=== PATIENT | male | born 1950 | race Caucasian/White ===

== ENCOUNTER 2017-03-18 12:46 | Emergency (ER) | payer MEDICARE, OTHER ==
[~2017-03-18] VITALS: Ht 172.7 cm; Wt 77.1 kg
[~2017-03-18 12:46] MED LIST: AMOX500 PO; ASPI81EC PO; CLON1; CLON1 PO; DIAZ2 PO; DOXY100; DULO30 PO; ESOM20; ESOM20 PO; HYDACE5; HYDACE5 PO; HYDACE5325 PO; LORA2 PO; META800 PO; METO25ER PO; NAPR550 PO; NEOPOLHYDS OT; OXYACE5T PO; OXYC10ER PO; OXYC40ER PO; PROACE100; TIZA4; VENL75ER
[2017-03-18 13:20] LABS: BASOPHILS ABSOLUTE AUTO 0.02 K/mm3 (0.00-0.23); BASOPHILS PERCENT AUTO 0 % (0-2); EOSINOPHILS PERCENT AUTO 3 % (0-6); Hematocrit 47.4 % (37.0-53.0); Hemoglobin 15.2 g/dL (13.5-17.5); IMMATURE GRAN ABSOLUTE AUTO 0.02 K/mm3 (0.00-0.10); IMMATURE GRAN PERCENT AUTO 0 % (0-1); LYMPHOCYTES ABSOLUTE AUTO 2.26 K/mm3 (0.84-5.20); LYMPHOCYTES PERCENT AUTO 32 % (21-46); MONOCYTES ABSOLUTE AUTO 0.49 K/mm3 (0.16-1.47); MONOCYTES PERCENT AUTO 7 % (4-13); Mean Corpuscular HGB 28.8 pg (26.0-34.0); Mean Corpuscular HGB Conc 32.1 g/dL (31.5-36.5); Mean Corpuscular Volume 90 fL (80-100); Mean Platelet Volume 8.9 fL (9.1-12.4); NEUTROPHILS ABSOLUTE AUTO 4.11 K/mm3 (1.96-9.15); NEUTROPHILS PERCENT AUTO 58 % (41-73); Platelet Count 201 K/mm3 (150-400); RDW Coefficient Variation 13.8 % (11.7-14.2); RDW Standard Deviation 45.4 fL (35.1-46.3); Red Blood Cell Count 5.28 M/mm3 (4.30-5.90)
[2017-03-18 13:43] LABS: Alanine Aminotransfer (ALT/SGP 24 U/L (12-78); Albumin, Blood 3.6 g/dL (3.4-5.0); Albumin/Globulin Ratio 0.9 (0.8-1.8); Alk Phos 84 U/L (50-136); Anion Gap 5 mmol/L (6-16); Aspartate Aminotrans (AST/SGOT 19 U/L (12-37); Bilirubin, Total 0.5 mg/dL (0.1-1.0); Blood Urea Nitrogen 16 mg/dL (8-24); Bun/Creatinine Ratio 15.7 (12.0-20.0); CO2, Blood 31 mmol/L (21-32); Calcium, Blood 8.5 mg/dL (8.5-10.1); Chloride, Blood 104 mmol/L (98-108); Creatinine, Blood 1.02 mg/dL (0.60-1.20); Globulin, Blood 3.9 g/dL (2.2-4.0); Glomerular Filtration Rate >60 (60-); Glucose, Blood 99 mg/dL (70-99); Potassium, Blood 4.1 mmol/L (3.5-5.5); Sodium, Blood 140 mmol/L (136-145); Total Protein, Blood 7.5 g/dL (6.4-8.2); Troponin I <0.015 ng/mL (0.000-0.040)
== END 2017-03-18 16:34 | disposition home or self-care (01) ==
LOC: ER 12:46
PROVIDERS: Emergency Medicine
DX: R07.89 Other chest pain (principal); F03.90 Unspecified dementia, unspecified severity, without behavioral disturbance, psychotic disturbance, mood disturbance, and anxiety; Z79.82 Long term (current) use of aspirin; Z79.899 Other long term (current) drug therapy; Z87.891 Personal history of nicotine dependence
CPT/HCPCS: 36415; 71046; 80053; 84484; 85025; 93005; 93010; 99284

== ENCOUNTER 2018-11-06 07:42 | Inpatient (IN) | payer MEDICARE, OTHER ==
[~2018-11-06] VITALS: Ht 172.7 cm; Wt 80.0 kg
[2018-11-06 09:03] LABS: BASOPHILS ABSOLUTE AUTO 0.05 K/mm3 (0.00-0.23); BASOPHILS PERCENT AUTO 0 % (0-2); EOSINOPHILS ABSOLUTE AUTO 0.03 K/mm3 (0.00-0.68); EOSINOPHILS PERCENT AUTO 0 % (0-6); Hemoglobin 18.4 g/dL (13.5-17.5); IMMATURE GRAN ABSOLUTE AUTO 0.17 K/mm3 (0.00-0.10); IMMATURE GRAN PERCENT AUTO 1 % (0-1); LYMPHOCYTES ABSOLUTE AUTO 1.93 K/mm3 (0.84-5.20); LYMPHOCYTES PERCENT AUTO 12 % (21-46); MONOCYTES ABSOLUTE AUTO 0.94 K/mm3 (0.16-1.47); MONOCYTES PERCENT AUTO 6 % (4-13); Mean Corpuscular HGB 29.2 pg (26.0-34.0); Mean Corpuscular HGB Conc 32.6 g/dL (31.5-36.5); Mean Corpuscular Volume 89 fL (80-100); Mean Platelet Volume 8.5 fL (9.1-12.4); NEUTROPHILS ABSOLUTE AUTO 12.87 K/mm3 (1.96-9.15); NEUTROPHILS PERCENT AUTO 80 % (41-73); Platelet Count 294 K/mm3 (150-400); RDW Coefficient Variation 15.9 % (11.7-14.2); RDW Standard Deviation 50.1 fL (35.1-46.3); Red Blood Cell Count 6.31 M/mm3 (4.30-5.90); White Blood Cell Count 15.99 K/mm3 (4.00-11.30)
[2018-11-06 09:06] LABS: Hematocrit 56.4 % (37.0-53.0)
[2018-11-06 09:18] LABS: Alanine Aminotransfer (ALT/SGP 45 U/L (12-78); Albumin, Blood 3.6 g/dL (3.4-5.0); Albumin/Globulin Ratio 0.9 (0.8-1.8); Alk Phos 77 U/L (50-136); Anion Gap 6 mmol/L (6-16); Aspartate Aminotrans (AST/SGOT 33 U/L (12-37); Bilirubin, Total 0.7 mg/dL (0.1-1.0); Blood Urea Nitrogen 9 mg/dL (8-24); Bun/Creatinine Ratio 9.3 (12.0-20.0); CO2, Blood 30 mmol/L (21-32); Calcium, Blood 8.5 mg/dL (8.5-10.1); Chloride, Blood 101 mmol/L (98-108); Creatinine, Blood 0.97 mg/dL (0.60-1.20); Globulin, Blood 4.1 g/dL (2.2-4.0); Glomerular Filtration Rate >60 (60-); Glucose, Blood 198 mg/dL (70-99); Potassium, Blood 3.5 mmol/L (3.5-5.5); Sodium, Blood 137 mmol/L (136-145); Total Protein, Blood 7.7 g/dL (6.4-8.2)
[2018-11-06] MEDS ORDERED: Primidone50 MG PO (10:24)
[2018-11-06] MEDS ORDERED: Robaxin750 MG PO (10:24)
[2018-11-06] MEDS ORDERED: TRAZ50 PO ×2 (10:24→15:31)
[2018-11-06] MEDS ORDERED: Depo-Testos200 MG/ML IM (10:24)
[2018-11-06] MEDS ORDERED: Prozac40 MG PO (10:24)
[2018-11-06] MEDS ORDERED: MORPHINE 1100 MG/101 (11:49)
[2018-11-06 11:53] LABS: International Normalized Ratio 1.05; Prothrombin Time Results 11.1 Sec (9.7-11.5)
[2018-11-06 15:23] LABS: Bilirubin, Urine Neg (Neg); Blood, Urine 1+ (Neg); Glucose Qualitative, Urine 2+ (Neg); Ketones, Urine 3+ (Neg); Leukocyte Esterase, Urine Neg (Neg); Nitrite, Urine Neg (Neg); Protein, Urine Neg (Neg); Urobilinogen, Urine NORM (Normal)
[2018-11-06] MEDS ORDERED: Vitamin D2000 UNIT PO (15:34)
[2018-11-06 15:35] LABS: Color, Urine Yellow (P-Yellow)
[2018-11-06 15:36] LABS: Appearance, Urine Clear (Clear)
[2018-11-06 15:37] LABS: Bacteria Rare /hpf; Red Blood Cells, Urine 0-2 /hpf (0-2); Squamous Epithelial Cells Rare /hpf (Few); White Blood Cells, Urine 0-2 /hpf (0-5)
--- NOTE | 2018-11-06 19:47 | NUR ---
1229 PT ADMITTED TO MEDICAL FLOOR VIA GURNEY, SELF TRANSFERED TO BED WITHOUT ISSUE, ALTHOUGH PAINFUL. PT WITH ABD PAIN, NO NAUSEA, GAURDED, PAINFUL WITH MINIMAL PALPATATION. MEDICATED PER EMAR FOR PAIN WITH SOME RELIEF. IV BOLUS COMPLETED, STARTED ON MAINTENCE FLUIDS. PT IS FLUSHED, DIAPHORETIC, TACHYCARDIC, BP STABLE. 1700 UNABLE TO MANAGE PAIN WITH CURRENT ORDERS ABD PAIN HAS INCREASED. DR. HODGES NOTIFIED, RECIEVED ORDERS FOR SURGICAL CONSULT AND DR. HODGES INCREASED THE DOSING OF PAIN MEDICATIONS. DR. KU THEN ORDERED STAT CT ABD WITH CONTRAST, WHEN PT RETURNED PAIN STILL 10/10, PT GAURDED MOANING AND WITH SHALLOW BREATHING DEEP INSPIRATION INCREASED PAIN. 1845 DR. KU AT BEDSIDE, HE REPORTS TO PT AND OF CT FINDINGS AND REVIEWS OPTIONS OF TREATMENT. PT AND WISH TO AVOID SURGICAL INTERVENTION FOR THE TIME BEING AND SEE IF THE PT IMPROVES WITH FLUIDS AND IV ANTIBIOTICS, RISKS AND BENIFITS REVIEWED WITH PT AND . DR. KU GAVE ORDER TO TRANSFER PT TO PCU AND REQUEST THAT HOSPITALIST PLACE ORDERS FOR RISK CONTROL PRODUCT LIABILITY DIRECTOR PUMP PAIN MANAGEMENT. DR. SANTIAGO NOTIFIED, HE REPORTED THAT HE WOULD PUT IN THE ORDERS.
--- NOTE | 2018-11-06 20:14 | NUR ---
PT TRANSFERRED TO PCU 13. REPORT CALLED TO MARIO WALTERS. PT BELONGINGS TRANSFERRED WITH PT, AT BEDSIDE.
--- NOTE | 2018-11-06 20:30 | NUR ---
PT BROUGHT TO PCU RM 13 @ APPROX 2000 W/ AT BEDSIDE. PT A&O X4. PT C/O 12/21 "GAS-LIKE" "STABBING" ABDOMINAL PAIN SPREAD ACROSS LOWER ABD. PT STATES INABILITY TO TAKE DEEP BREATHES D/T INCREASED PAIN. PT TO BE SET UP W/ BANK COURIER FOR PAIN. PT NPO W/ ANTICIPATION OF POSSIBLE SURGERY. BP ELEVATED, RR 20-30. MONITOR SHOWS ST, HR 120-135. SURGICALLY INSERTED PAIN PUMP NOTED TO BE PRESENT IN LLQ. STATES PT LAST USED PAIN PUMP "YESTERDAY MORNING." DISCUSSED USE W/ PT SPOUSE. IV ABX AND FLUIDS INFUSING PER ORDERS. WILL CONTINUE TO MONITOR AND PROVIDE CARE.
--- NOTE | 2018-11-07 00:04 | NUR ---
UPDATE PT REPORTS DECREASE IN PAIN FROM 12/21 TO 09/20 W/ PAIN PUMP BEING USED BY PT. BP CONTINUES TO BE ELEVATED, AND MONITOR CONTINUES TO SHOWS ST, HR 120-130, RR 20-30. CALL TO MD LU TO REPORT CONTINUED BP ELEVATION AND HR. NO NEW ORDERS AT THIS TIME. WILL CONTINUE TO MONITOR AND PROVIDE CARE.
--- NOTE | 2018-11-07 01:39 | NUR ---
PT C/O INCREASING LOWER ABD PAIN RETURNING TO 9/10. PT FOUND TO NO LONGER HAVE TOOL OR DIE DRAWING CHECKER PUMP REMOTE WITHIN REACH AND NOT HAVING USED IT RECENTLY. REMOTE RETURNED TO PT W/ ENCOURAGEMENT TO USE TOOL OR DIE DRAWING CHECKER PUMP NEEDED TO BETTER MANAGE PAIN. WILL CONTINUE TO MONITOR AND PROVIDE CARE.
[2018-11-07 04:12] LABS: BASOPHILS ABSOLUTE AUTO 0.07 K/mm3 (0.00-0.23); BASOPHILS PERCENT AUTO 1 % (0-2); EOSINOPHILS PERCENT AUTO 0 % (0-6); Hematocrit 58.6 % (37.0-53.0); Hemoglobin 19.2 g/dL (13.5-17.5); IMMATURE GRAN ABSOLUTE AUTO 0.07 K/mm3 (0.00-0.10); IMMATURE GRAN PERCENT AUTO 1 % (0-1); LYMPHOCYTES ABSOLUTE AUTO 0.42 K/mm3 (0.84-5.20); LYMPHOCYTES PERCENT AUTO 4 % (21-46); MONOCYTES ABSOLUTE AUTO 0.31 K/mm3 (0.16-1.47); MONOCYTES PERCENT AUTO 3 % (4-13); Mean Corpuscular HGB 29.2 pg (26.0-34.0); Mean Corpuscular HGB Conc 32.8 g/dL (31.5-36.5); Mean Corpuscular Volume 89 fL (80-100); Mean Platelet Volume 8.8 fL (9.1-12.4); NEUTROPHILS ABSOLUTE AUTO 8.86 K/mm3 (1.96-9.15); NEUTROPHILS PERCENT AUTO 91 % (41-73); Platelet Count 251 K/mm3 (150-400); RDW Coefficient Variation 16.4 % (11.7-14.2); RDW Standard Deviation 50.6 fL (35.1-46.3); Red Blood Cell Count 6.57 M/mm3 (4.30-5.90); White Blood Cell Count 9.73 K/mm3 (4.00-11.30)
[2018-11-07 04:23] LABS: Alanine Aminotransfer (ALT/SGP 39 U/L (12-78); Albumin, Blood 2.7 g/dL (3.4-5.0); Albumin/Globulin Ratio 0.7 (0.8-1.8); Alk Phos 48 U/L (50-136); Anion Gap 7 mmol/L (6-16); Aspartate Aminotrans (AST/SGOT 35 U/L (12-37); Bilirubin, Total 1.3 mg/dL (0.1-1.0); Blood Urea Nitrogen 12 mg/dL (8-24); Bun/Creatinine Ratio 13.9 (12.0-20.0); CO2, Blood 24 mmol/L (21-32); Calcium, Blood 8.3 mg/dL (8.5-10.1); Chloride, Blood 104 mmol/L (98-108); Creatinine, Blood 0.87 mg/dL (0.60-1.20); Globulin, Blood 3.8 g/dL (2.2-4.0); Glomerular Filtration Rate >60 (60-); Glucose, Blood 118 mg/dL (70-99); Potassium, Blood 4.4 mmol/L (3.5-5.5); Sodium, Blood 135 mmol/L (136-145); Total Protein, Blood 6.5 g/dL (6.4-8.2)
[2018-11-07 04:37] LABS: BAND PERCENT MAN 53 % (0-8); BASOPHILS PERCENT MAN 0 % (0-2); EOSINOPHILS PERCENT MAN 0 % (0-6); LYMPHOCYTES ABSOLUTE MAN 0.38 K/mm3 (0.84-5.20); LYMPHOCYTES PERCENT MAN 4 % (21-46); METAMYELOCYTE ABSOLUTE MAN 1.94 K/mm3 (0.00-0.00); METAMYELOCYTE PERCENT MAN 20 % (0-0); MONOCYTES ABSOLUTE MAN 0.09 K/mm3 (0.16-1.47); MONOCYTES PERCENT MAN 1 % (4-13); NEUTROPHILS ABSOLUTE MAN 7.29 K/mm3 (1.96-9.15); SEG NEUTROPHILS PERCENT MAN 22 % (41-73); TOTAL CELLS COUNTED 100
--- NOTE | 2018-11-07 05:57 | NUR ---
SHIFT SUMMARY PT A&O X4. PT CONTINUES TO C/O "STABBING" LOWER ABD PAIN THAT IS WORSENED W/ ATTEMPT TO DEEP BREATHE. PT BEING ENCOURAGED TO STAY ON TOP OF PAIN W/ FIELD REPRESENTATIVE PUMP, PT REQUIRING REMINDING TO USE. BP, HR, AND RR CONTINUE TO BE ELEVATED. CALL TO MD LU THIS SHIFT FOR BP AND HR W/ INSTRUCTIONS TO CONTINUE MONITORING W/ NO NEW ORDERS. PT CONTINUES TO BE NPO FOR POTENTIAL SURGERY. SPO2 > 92% W/ 2L NC. PT VOIDING IN URINAL W/ URINE NOTED TO OCCASSIONALLY BE BLOOD TINGED AND HAVE MUCUS LIKE STRANDS IN URINE. UA PREVIOUSLY DONE. PT IN BED W/ SPOUSE AT BEDSIDE T/O SHIFT. IV FLUIDS AND ABX INFUSING PER ORDERS. WILL CONTINUE TO MONITOR AND PROVIDE CARE UNTIL REPORT OFF TO DAY SHIFT RN.
--- NOTE | 2018-11-07 09:04 | NUR ---
Bedside report was received from Lisa Mohan RN. The pt is awake, appears uncomfortable, and is talking with us. States his pain is 8/10, and is pushing the [employer] pump delivery button every 10 minutes as his is setting a timer on her iPad to alert him to when his pain medication is available. However, this led to the pt reaching the 4 hour maximum dose limit quite soon and a lockout time of 1 hour [address] Ackerman was called at 0750 (just after he had rounded on the patient) and 4 hour max dose was increased. I spoke with his who was concerned that the pt's pain would spiral out of control which she stated had happened last night, which is why she was setting the timer on her iPad. I explained that it would be better to allow the patient's pain , not the timer or a clock, to determine when it would be the time for him to push the delivery button on the [employer]. She seemed anxious by the suggestion, but I explained that it is a safety measure to prevent overdosing on the IV narcotic. She verbalized understanding.
--- NOTE | 2018-11-07 09:50 | NUR ---
History, Chart, Medications and Allergies reviewed before start of procedure.Lungs clear t/o but labor breathing due to abdominal pain. 02 2l/nc in place to keep sats >90% Patient confirms NPO status and agrees with scheduled surgery. Pre-Op teaching done. Pt verbalizes understanding.
--- NOTE | 2018-11-07 12:06 | NUR ---
11/07/18 1206 Jonas Berg 1155 RECEIVED REPORT FROM JENN SILVERIO
--- NOTE | 2018-11-07 14:15 | NUR ---
Patient arrived from surgery with anesthesia managing airway and handed off to RT and Dr Pearson. Patient hooked up to monitor and vent. He has 7.5 ET and 23cm at teeth with vent settings AC 16, TV 450, FiO2 100%, PEEP 5.0 and sats 100%. Shortly after reduced to FiO2 25% and sats 94%. Placed OG and Verified by xray, labs drawn.He has surgically implanted pain pump to left abdomen, wound Vac to midline abdomen and ostomy with pink stoma to left sidce of wound vac. He has JORI drain with seroussanguenous fluid in JORI bulb. He has 14 Eh. patten draining to gravity. He opens eyes with positioning.. Dr solorzano by to see patient.
[2018-11-07 14:45] LABS: Base Excess Venous 0.5 mmol/L; PCO2 Venous 47.3 mmHg (38-42); PO2 Venous 28.2 mmHg (38-42); pH Blood Venous 7.35 (7.34-7.37)
[2018-11-07 15:23] LABS: Mean Corpuscular HGB 29.4 pg (26.0-34.0); Mean Corpuscular HGB Conc 32.1 g/dL (31.5-36.5); Mean Platelet Volume 9.3 fL (9.1-12.4); Platelet Count 233 K/mm3 (150-400); RDW Coefficient Variation 15.9 % (11.7-14.2); RDW Standard Deviation 53.5 fL (35.1-46.3); Red Blood Cell Count 6.13 M/mm3 (4.30-5.90); White Blood Cell Count 6.95 K/mm3 (4.00-11.30)
[2018-11-07 15:24] LABS: Magnesium, Blood 1.4 mg/dL (1.6-2.4)
[2018-11-07 15:26] LABS: Hematocrit 56.1 % (37.0-53.0)
[2018-11-07 15:27] LABS: Alanine Aminotransfer (ALT/SGP 31 U/L (12-78); Albumin/Globulin Ratio 0.6 (0.8-1.8); Alk Phos 38 U/L (50-136); Anion Gap 6 mmol/L (6-16); Aspartate Aminotrans (AST/SGOT 35 U/L (12-37); Bilirubin, Total 1.1 mg/dL (0.1-1.0); Blood Urea Nitrogen 14 mg/dL (8-24); Bun/Creatinine Ratio 12.1 (12.0-20.0); CO2, Blood 27 mmol/L (21-32); Calcium, Blood 7.6 mg/dL (8.5-10.1); Chloride, Blood 103 mmol/L (98-108); Creatinine, Blood 1.16 mg/dL (0.60-1.20); Globulin, Blood 3.3 g/dL (2.2-4.0); Glomerular Filtration Rate >60 (60-); Glucose, Blood 118 mg/dL (70-99); Mean Corpuscular Volume 92 fL (80-100); Phosphorus, Blood 2.3 mg/dL (2.5-4.9); Potassium, Blood 4.4 mmol/L (3.5-5.5); Sodium, Blood 136 mmol/L (136-145); Total Protein, Blood 5.3 g/dL (6.4-8.2); Troponin I 0.024 ng/mL (0.000-0.040)
[2018-11-07 15:49] LABS: BAND PERCENT MAN 50 % (0-8); BASOPHILS PERCENT MAN 0 % (0-2); EOSINOPHILS ABSOLUTE MAN 0.06 K/mm3 (0.00-0.68); EOSINOPHILS PERCENT MAN 1 % (0-6); LYMPHOCYTES ABSOLUTE MAN 0.62 K/mm3 (0.84-5.20); LYMPHOCYTES PERCENT MAN 9 % (21-46); METAMYELOCYTE ABSOLUTE MAN 0.62 K/mm3 (0.00-0.00); METAMYELOCYTE PERCENT MAN 9 % (0-0); MONOCYTES ABSOLUTE MAN 0.06 K/mm3 (0.16-1.47); MONOCYTES PERCENT MAN 1 % (4-13); MYELOCYTE ABSOLUTE MAN 0.13 K/mm3 (0.00-0.00); MYELOCYTE PERCENT MAN 2 % (0-0); NEUTROPHILS ABSOLUTE MAN 5.42 K/mm3 (1.96-9.15); SEG NEUTROPHILS PERCENT MAN 28 % (41-73); TOTAL CELLS COUNTED 100
--- NOTE | 2018-11-07 15:50 | NUR ---
Patient by and at bedside, he is resting and no changes to vent settings from last note. Propofol increased to 45mcg/kg/min as he was a little restless. Systolic 118, MAP>65 and HR 114. Surgical site and wound vac sites C/D/I .
--- NOTE | 2018-11-07 17:02 | NUR ---
Did stat lactic acid and came back at 4.[address] Pearson and orders for one NS bolus 1L and then 150ml/hr. Placed cooling fan as temp increased to 99.3. VSS
--- NOTE | 2018-11-07 17:54 | NUR ---
Vent setting AC 16, TV 450, FiO2 25%, PEEP 5.0 at sats 92%. Ice packed armpits and placed ice in front of fan took blankets off and his temp finally dropped 98.9. Emptied 40 ml serous sanguenous from JORI, wound vac intact and working. Bolus done and NS at 150ml/hr started. remains at bedisde. Propofol continues at 45 mcg/kg/min.
--- NOTE | 2018-11-07 19:00 | NUR ---
ASSUMED CARE ASSUMED CARE OF PATIENT. REMAINS INTUBATED- AC 15, TV 450, PEEP 5, FIO2 30%. RR 15-16. SEDATED WITH PROPOFOL @ 45MCG/KG/MIN. RAISES EYESBROWS TO NOXIOUS STIMULI. FACIAL GRIMACING NOTED WITH STIMULI. MINIMAL GROSS MOTOR MOVEMENT NOTED IN EXTREMITIES. NOT FOLLOWING ANY COMMANDS. JACKLYN, 2MM, SLIGHTLY SLUGGISH. BILATERAL SOFT WRIST RESTRAINTS IN PLACE. OG CLAMPED AT THIS TIME. MIDLINE ABDOMINAL INCISION WITH WOUND VAC. LANCE DRAIN TO RIGHT ABDOMEN WITH SMALL AMOUNT OF SEROSANGUINOUS DRAINAGE. COLOSTOMY INTACT TO LEFT ABDOMEN- STOMA IS BEEFY RED. MCNEIL PATENT AND DRAINING SMALL AMOUNTS OF KANA URINE. PAS TO BLE. LR INFUSING @ 150CC/HR PER ORDER.
--- NOTE | 2018-11-07 20:00 | NUR ---
ELECTROLYTES RECEIVED CALL FROM DR. MORAES REGARDING LABS DRAWN AT 1430. WILL REPLACE PHOSPHOROUS AND MAGNESIUM PER ELECTROLYTE REPLACEMENT PROTOCOL. UPDATE GIVEN TO DR. MORAES, INCLUDING DECREASED URINE OUTPUT. PLAN IS TO TKO IV FLUIDS AT THIS TIME AND MONITOR URINE OUTPUT.
--- NOTE | 2018-11-07 23:02 | NUR ---
MD UPDATE DR. MORAES UPDATED ON URINARY OUTPUT AND BLOOD PRESSURE. IV FLUIDS DISCUSSED WITH AND DECISION MADE TO FINISH THE NS BAG THAT IS CURRENTLY HANGING AT 100CC/HR AND THEN TK0 IV FLUIDS.
[2018-11-08 03:27] LABS: Base Excess Venous -0.2 mmol/L; PCO2 Venous 52.3 mmHg (38-42); PO2 Venous 24.7 mmHg (38-42); pH Blood Venous 7.31 (7.34-7.37)
[2018-11-08 03:33] LABS: BASOPHILS ABSOLUTE AUTO 0.04 K/mm3 (0.00-0.23); BASOPHILS PERCENT AUTO 1 % (0-2); Hematocrit 47.3 % (37.0-53.0); LYMPHOCYTES ABSOLUTE AUTO 0.45 K/mm3 (0.84-5.20); LYMPHOCYTES PERCENT AUTO 6 % (21-46); MONOCYTES ABSOLUTE AUTO 0.27 K/mm3 (0.16-1.47); MONOCYTES PERCENT AUTO 3 % (4-13); Mean Corpuscular HGB 29.4 pg (26.0-34.0); Mean Corpuscular HGB Conc 31.7 g/dL (31.5-36.5); Mean Corpuscular Volume 93 fL (80-100); Mean Platelet Volume 8.9 fL (9.1-12.4); Platelet Count 187 K/mm3 (150-400); RDW Coefficient Variation 15.9 % (11.7-14.2); RDW Standard Deviation 54.2 fL (35.1-46.3); Red Blood Cell Count 5.11 M/mm3 (4.30-5.90); White Blood Cell Count 8.17 K/mm3 (4.00-11.30)
[2018-11-08 03:38] LABS: EOSINOPHILS PERCENT AUTO 0 % (0-6); IMMATURE GRAN ABSOLUTE AUTO 0.06 K/mm3 (0.00-0.10); IMMATURE GRAN PERCENT AUTO 1 % (0-1); NEUTROPHILS ABSOLUTE AUTO 7.35 K/mm3 (1.96-9.15); NEUTROPHILS PERCENT AUTO 90 % (41-73)
--- NOTE | 2018-11-08 03:50 | NUR ---
SBT PROPOFOL TITRATED DOWN AND OFF FOR SPONTANEOUS BREATHING TRIAL. RT AT BEDSIDE.
[2018-11-08 03:51] LABS: Anion Gap 9 mmol/L (6-16); Blood Urea Nitrogen 13 mg/dL (8-24); CO2, Blood 26 mmol/L (21-32); Chloride, Blood 108 mmol/L (98-108); Creatinine, Blood 1.08 mg/dL (0.60-1.20); Glomerular Filtration Rate >60 (60-); Glucose, Blood 135 mg/dL (70-99); Magnesium, Blood 2.2 mg/dL (1.6-2.4); Phosphorus, Blood 2.3 mg/dL (2.5-4.9); Potassium, Blood 3.1 mmol/L (3.5-5.5); Sodium, Blood 143 mmol/L (136-145)
--- NOTE | 2018-11-08 04:25 | NUR ---
SBT COMPLETE SPONTANEOUS BREATHING TRIAL COMPLETE- SEE RT DOCUMENTATION. PT IS AWAKE AND ALERT. NODS HEAD YES/NO APPROPRIATELY. FOLLOWS COMMANDS. DENIES C/O PAIN AT THIS TIME, BUT FACIAL GRIMACING NOTED. PROPOFOL RESTARTED AT 30MCG/KG/MIN.
--- NOTE | 2018-11-08 06:04 | NUR ---
SHIFT SUMMARY NO ACUTE CHANGES. REMAINS INTUBATED- AC 15, TV 450, PEEP 5, FIO2 25%. RESP RATE 15-18. SBT DONE THIS AM- SEE RT DOCUMENTATION. SEDATED WITH PROPOFOL BETWEEN 10-45MCG/KG/MIN DURING SHIFT- NOW INFUSING @ 25MCG/KG/MIN. SEDATION VACATION DONE WITH SBT- PT OPENED EYES, FOLLOWED SIMPLE COMMANDS, AND NODDED HEAD YES/NO APPROPRIATELY. MOVES ALL EXTREMITIES WEAKLY. BILATERAL SOFT WRIST RESTRAINTS REMAIN IN PLACE TO PREVENT SELF-EXTUBATION. MONITOR SHOWS ST, RATE 100-110s. SBP 90s-110s. TMAX 99.7F. MEDICATED WITH FENTANYL 50MCG IV X 2 DOSES FOR PAIN WITH GOOD RELIEF. OG CLAMPED. COLOSTOMY TO LEFT ABDOMEN WITH SCANT SEROUS DRAINAGE. STOMA IS RED AND BEEFY. JORI TO RIGHT ABDOMEN WITH 30CC SEROSANGUINOUS DRAINAGE DURING SHIFT. MIDLINE INCISION WITH WOUND VAC IN PLACE- SCANT SEROSANGUINOUS DRAINAGE NOTED. MCNEIL PATENT AND DRAINING KANA URINE. PAS TO BLE. RECEIVING KPHOS REPLACEMENT PER ELECTROLYTE PROTOCOL. NS TKO. AT BEDSIDE.
--- NOTE | 2018-11-08 07:22 | NUR ---
Recieved report from Evelyn MARTIN. Patient on left side with HOB at 30 degrees. He is intubated and sedated. Hr has 7.5 ET and is 23 at teeth with vent settings AC 15, TV 450, FiO2 25%, PEEP 5.0 with sats 96%. He awakens to painful stimuli. at bedside and is very concerned and has been updated on plan for today. Patient has 20ga IV in RH dressing intact and site WNL's and is infusing NS TKO at 10ml/hr. He also has 20ga LAC and dressing intact and site WNL's and is infusing Propofol at 20 mcg/kg/min. His 18ga LFA IV dressing intact and site WNL's is flushed and SL's. New ostomy site is dark red with some streaks of blood from stoma, Mid line wound vac site with minimal drainage, and JORI drain with about 10ml of serous saquenous fluid. He has SCD's in place. He is still febrile at 99.3 and ice packs were applied last shift and blankets have been remove with small fan blowing on patient. OG in place and is currently clamped.
--- NOTE | 2018-11-08 09:09 | NUR ---
0900 placed Propofol on hold and vent switched to spontanbeous mode PS 8 and tolerated well. He is able to follow directions well. Family at bedside. VSS. Will be extubating when a little more awake.
--- NOTE | 2018-11-08 09:27 | NUR ---
0920 extubated and placed on 4L O2 via NC and tolerating well. Restraints removed.
--- NOTE | 2018-11-08 11:12 | NUR ---
Patient remains up in a chair and has been on RA for about 30 minutes and sats 92%./ and tolerating well. He denies any distress. His pain is 5/10 which he states just over baseline. Family at bedside. RT is starting IS and Flutter valve.
--- NOTE | 2018-11-08 12:24 | NUR ---
Dr Boyer in to see patient. Started Cl Liq. Diet. Medicated for 10/[address] Boyer explain reason for possible perf several times and still request answers for perf. Patient continues to request to go home. He tolerated sips of water. VSS.
--- NOTE | 2018-11-08 14:11 | NUR ---
REPORT GIVEN TO SURGICAL FLOOR RN PT AND ALL BELONGINGS TAKEN TO FLOOR, PT WITH PT UPON TRANSFER. VSS UPON TRANFSER.
--- NOTE | 2018-11-08 14:37 | NUR ---
PT ARRIVED TO UNIT FROM ICU. ARRIVED IN RECLINER. BUE PROPPRED ON PILLOWS. PT ON RA. DROWSY BUT ANSWERS QUESTIONS APPROPRIATELY. RATES PAIN 7/10 TO ABD. STATES PAINFUL TO TAKE DEEP BREATH. LUNGS SOUND CLEAR WITH DIM BASES. RESPIRATIONS DO NOT APPEAR LABORED. HRR. BT ABSENT. SMALL AMT THIN RED DRAINAGE IN OSTOMY BAG. STOMA BEEFY RED AND MOIST. CALL LIGHT IN REACH. SPOUSE AT BEDSIDE.
--- NOTE | 2018-11-08 18:26 | NUR ---
SUMMARY PT TRANSFERRED THIS SHIFT FROM ICU. PLEASANT AND COOPERATIVE. VERY PAINFUL. MEDICATED PER ORDERS FOR ABD PAIN. HAS CHRONIC BACK PAIN. PT SITTING UP IN RECLINER. STOOD BRIEFLY THIS EVENING. VERY WEAK AND PAINFUL. SPOUSE AT BEDSIDE. CALL LIGHT IN REACH. IV INFUSING W/O DIFFICULTY.
--- NOTE | 2018-11-08 20:20 | NUR ---
VITALS: PT NOTED FOR BE FEBRILE 101.8, HR TACHY 128 UP TO 140'S W/ACTIVITY. CALL PLACED TO MD, VITALS AND I/O REVIEWED. NEW ORDER FOR TYLENOL AND TORADOL REC.
--- NOTE | 2018-11-09 00:21 | NUR ---
HR: CALLED STATING PT HR 120'S-145 WHILE PT SLEEPING. PT LYING QUIETLY, DENIES CP/PRESSURE/SOB, DOES REP PAIN IN RIBS, AND ABD. HR CURRENTLY 80-90'S DURING ROUNDING, SATS 94% ON 2LNC. CALL PLACED TO NIGHT HOSPITALIST, NEW ORDER FOR TELE REC.
--- NOTE | 2018-11-09 00:56 | NUR ---
HR: PT HR AFIB 160'S PER TELE MONITOR. PT NOW C/O LEFT MIS CHEST PAIN. CALL PLACED TO MD, HR AND VITALS REVIEWED. NEW ORDER FOR CARDIZEM BOLUS NOW THEN TO TX PT TO PCU AND START CARDIZEM GTT.
--- NOTE | 2018-11-09 01:03 | NUR ---
PT ANS UPDATED IN PLAN TO TX TO PCU.
--- NOTE | 2018-11-09 01:48 | NUR ---
REPORT GIVEN TO MARIO STEWARD. PT TX TO PCU 3. ALL BELONGINGS SEND W/PT AND .
--- NOTE | 2018-11-09 02:00 | NUR ---
TRANSFER NOTE REPORT RECIEVED FROM MARIO ACOSTA. PATIENT ARRIVED TO PCU 3 AT APPROX 0150. PATIENT AND FAMILY ORIENTED TO THE NEW ROOM, UNIT, AND CALL LIGHT. PATIENT STARTED ON CARDIZEM AT 5 MG/HR. PATIENT'S HEART RATE AFIB IN THE 140'S PER PITCH FILLER. PATIENT STATED THAT HE NO LONGER HAD ANY CHEST PAIN. HOWEVER, PATIENT DID HAVE PAIN AT SURGICAL SITE AND NECK. PATIENT MEDICATED FOR PAIN PER EMAR. VITAL SIGNS CHARTED. AT BEDSIDE. WILL CONTINUE TO MONITOR.
--- NOTE | 2018-11-09 03:20 | NUR ---
RHYTHM CHANGE PATIENT CONVERTED TO SINUS TACH AT APPROX 0246 PER SOAP WORKER. PATIENT CURRENTLY AT SINUS TACH IN THE LOW 100'S.
[2018-11-09 04:04] LABS: BASOPHILS ABSOLUTE AUTO 0.05 K/mm3 (0.00-0.23); BASOPHILS PERCENT AUTO 1 % (0-2); EOSINOPHILS PERCENT AUTO 0 % (0-6); Hemoglobin 16.1 g/dL (13.5-17.5); IMMATURE GRAN ABSOLUTE AUTO 0.13 K/mm3 (0.00-0.10); IMMATURE GRAN PERCENT AUTO 1 % (0-1); LYMPHOCYTES ABSOLUTE AUTO 0.52 K/mm3 (0.84-5.20); LYMPHOCYTES PERCENT AUTO 5 % (21-46); MONOCYTES ABSOLUTE AUTO 0.38 K/mm3 (0.16-1.47); MONOCYTES PERCENT AUTO 4 % (4-13); Mean Corpuscular HGB 29.4 pg (26.0-34.0); Mean Corpuscular HGB Conc 32.2 g/dL (31.5-36.5); Mean Corpuscular Volume 91 fL (80-100); Mean Platelet Volume 9.2 fL (9.1-12.4); NEUTROPHILS ABSOLUTE AUTO 9.84 K/mm3 (1.96-9.15); NEUTROPHILS PERCENT AUTO 90 % (41-73); Platelet Count 218 K/mm3 (150-400); RDW Coefficient Variation 16.1 % (11.7-14.2); RDW Standard Deviation 54.8 fL (35.1-46.3); Red Blood Cell Count 5.48 M/mm3 (4.30-5.90); White Blood Cell Count 10.92 K/mm3 (4.00-11.30)
[2018-11-09 04:23] LABS: Anion Gap 6 mmol/L (6-16); Blood Urea Nitrogen 15 mg/dL (8-24); Bun/Creatinine Ratio 14.6 (12.0-20.0); CO2, Blood 26 mmol/L (21-32); Calcium, Blood 7.8 mg/dL (8.5-10.1); Chloride, Blood 107 mmol/L (98-108); Creatinine, Blood 1.03 mg/dL (0.60-1.20); Glomerular Filtration Rate >60 (60-); Glucose, Blood 106 mg/dL (70-99); Magnesium, Blood 2.4 mg/dL (1.6-2.4); Phosphorus, Blood 2.5 mg/dL (2.5-4.9); Potassium, Blood 4.2 mmol/L (3.5-5.5); Sodium, Blood 139 mmol/L (136-145)
--- NOTE | 2018-11-09 07:38 | NUR ---
SHIFT SUMMARY PATIENT HAS REMAINED IN SINUS RHYTHM THROUGHOUT THE REST OF THE NIGHT. CARDIZEM GTT TURNED OF WHEN PATIENT BEGAN TRENDING IN THE 80'S. PATIENT APPEARED TO SLEEP WELL THROUGHOUT THE REST OF THE NIGHT. PATIENT MEDICATED FOR PAIN PER EMAR. WOUND VAC IN PLACE. VITAL SIGNS CHART. VERY ANXIOUS, THIS RN SPENT TIME WITH AND HELPED TO PROVIDE EDUCATION ON PATIENT'S CURRENT SITUATION, RHYTHM CHANGES, AND MEDICATIONS. REPORT GIVEN TO ONCOMING RN.
--- NOTE | 2018-11-09 08:15 | NUR ---
AM NOTE. ASSUMED CARE OF PT APROX 0700. PT IS A&Ox4 AND SLEEPY AT THIS TIME D/T RECENT PAIN MEDICATION. PT IS S/P COLECTOMY SURGERY WAS DONE ON 10/29/18. PT'S IS AT THE BEDSIDE. PT'S WOUND VAC AND INCISION ARE C/D/I, GOOD COMPRESSION IS NOTED TO THE FOAM DRESSING OF THE WOUND VAC. JORI DRAIN IS COMPRESSED AND DRAINING SS FLUID. PT HAS FEAR OF CAUSING PAIN WITH ANY TYPE OF MOVMENT, PT AND EDUCATED ON THE IMPORTANCE OF POST OP MOBILITY PAIRED WITH PAIN CONTROL MEASURES. PT WAS OFFERED BEDBATH WHILE THIS RN AND BROOM STITCHER WAS IN THE ROOM. PT'S STATED "I AM WAITING FOR MY DAUGHTER TO BRING IN HIS STUFF AND THEN I WILL CLEAN HIM UP." PT'S HRR, NSR IN THE 90'S PER ENVIRONMENTAL ATTORNEY, PT'S BP IS STABLE AT THIS TIME. PT IS AFEBRILE. GENERALIZED EDEMA IS NOTED TO THE PT'S BUE, TRACE EDEMA IS NOTED TO HIS BLE. L/S CLEAR T/O DIM IN THE BASES, PT WAS ON 2L NC WITH O2 SATS AT 97-100%, O2 WAS TITRATED TO 1L NC PT WAS ABLE TO TOLERATE THIS WHILE AWAKE AT 94%. BT PRESENT AND HYPOACTIVE, ABD IS VERY TENDER AND GUARDED, BUT SOFT TO GENTLE PALP. CALL LIGHT IN REACH, BED IS LOCKED AND LOW WILL CONTINUE TO MONITOR.
--- NOTE | 2018-11-09 13:47 | NUR ---
PT UPDATE... PT'S CAME TO THIS RN AND STATED: "I AM CONCERNED ABOUT HIS EDEMA, I THINK IT IS GETTING WORSE! HE HAS DOUBLED IN SIZE! I DON'T FEEL LIKE YOU GUYS ARE LISTENING TO ME AND I AM CONCERNED THAT HIM BEING IN AFIB HAS CAUSED HIM TO GO INTO CONGESTIVE HEART FAILURE!" THIS RN THOUGHOUGHLY EDUCATED THE PT AND HIS ABOUT EDEMA, WHAT CAUSES IT AND THAT IT IS EXPECTED AT THIS POINT DUE TO HIS CURRENT ILLNESS PER HIS PROVIDER. PT AND STATED THEIR UNDERSTANDING. THERE HAS BEEN NO CHANGE IN THE PT'S EDEMA SINCE THIS RN ASSESSED THE PT THIS MORNING. THIS RN HAS PROVIDED EDUCATION TO THE PT AND HIS MULTIPLE TIMES THIS MORNING ALONE ABOUT HIS EDEMA AND CURRENT ILLNESS PRIOR TO THIS CONVERSATION. WILL CONTINUE TO MONITOR.
--- NOTE | 2018-11-09 18:46 | NUR ---
SHIFT SUMMARY. NO ACUTE CHANGES NOTED THIS SHIFT. PT'S WOUND VAC AND COLOSTOMY APPLIANCE WERE CHANGED WITH SURGEON AT THE BEDSIDE. PT'S VS STABLE EXCEPT PT BECAME FEBRILE THIS LATE AFTERNOON. PT MEDICATED PER EMAR FOR FEVER AND PAIN. PT'S AT THE BEDSIDE ALL SHIFT. PT AND EXTENSIVELY EDUCATED ON THE PT'S CURRENT ILLNESS, MOBILITY, EDEMA, CHF,AFIB, POST OP HEALING, PT/OT AND THE IMPORTANCE OF THE PT DOING THINGS FOR HIMSELF THAT HE IS ABLE TO DO. WELL PAIN MANAGMENT AND EXPECTATIONS. PT HAS BEEN IN NSR TO SINUS TACH ALL SHIFT WITH NO CARDIAC EVENTS ON TELE. PT WAS ENCOURAGED TO BE TURNED AND GET UP OUT OF BED MULTIPLE TIMES TODAY, PT ALLOWED STAFF TO TURN HIM 2 TIMES THIS SHIFT, ONCE IN THE BEGINING AND ONCE AT THE END, PT WAS EDUCATION ON PRESSURE ULCER PREVENTION AND PT STATED HIS UNDERSTANDING. PT ALSO DID NOT GET OUT OF BED TO SIT IN A CHAIR AFTER MULTIPLE SUGGESTIONS TO DO SO. EDUCATION ON MOBILITY AND DECONDITIONING WAS PROVIDED TO PT AND . CALL LIGHT IN REACH, BED IS LOCKED AND LOW WILL CONTINUE TO MONITOR UNTIL REPORT IS GIVEN TO ONCOMING RN.
[2018-11-10 04:07] LABS: BASOPHILS ABSOLUTE AUTO 0.07 K/mm3 (0.00-0.23); BASOPHILS PERCENT AUTO 1 % (0-2); EOSINOPHILS ABSOLUTE AUTO 0.09 K/mm3 (0.00-0.68); EOSINOPHILS PERCENT AUTO 1 % (0-6); Hematocrit 44.9 % (37.0-53.0); Hemoglobin 14.7 g/dL (13.5-17.5); IMMATURE GRAN ABSOLUTE AUTO 0.37 K/mm3 (0.00-0.10); IMMATURE GRAN PERCENT AUTO 3 % (0-1); LYMPHOCYTES ABSOLUTE AUTO 0.69 K/mm3 (0.84-5.20); LYMPHOCYTES PERCENT AUTO 6 % (21-46); MONOCYTES PERCENT AUTO 5 % (4-13); Mean Corpuscular HGB 28.9 pg (26.0-34.0); Mean Corpuscular HGB Conc 32.7 g/dL (31.5-36.5); Mean Platelet Volume 9.2 fL (9.1-12.4); NEUTROPHILS ABSOLUTE AUTO 9.31 K/mm3 (1.96-9.15); NEUTROPHILS PERCENT AUTO 84 % (41-73); Platelet Count 219 K/mm3 (150-400); RDW Coefficient Variation 15.9 % (11.7-14.2); RDW Standard Deviation 51.6 fL (35.1-46.3); Red Blood Cell Count 5.09 M/mm3 (4.30-5.90); White Blood Cell Count 11.13 K/mm3 (4.00-11.30)
[2018-11-10 04:09] LABS: Mean Corpuscular Volume 88 fL (80-100)
[2018-11-10 04:29] LABS: Albumin, Blood 1.7 g/dL (3.4-5.0); Anion Gap 7 mmol/L (6-16); Blood Urea Nitrogen 20 mg/dL (8-24); Bun/Creatinine Ratio 21.1 (12.0-20.0); CO2, Blood 29 mmol/L (21-32); Calcium, Blood 7.8 mg/dL (8.5-10.1); Chloride, Blood 105 mmol/L (98-108); Creatinine, Blood 0.95 mg/dL (0.60-1.20); Glomerular Filtration Rate >60 (60-); Glucose, Blood 89 mg/dL (70-99); Magnesium, Blood 2.2 mg/dL (1.6-2.4); Phosphorus, Blood 2.8 mg/dL (2.5-4.9); Potassium, Blood 3.9 mmol/L (3.5-5.5); Sodium, Blood 141 mmol/L (136-145)
--- NOTE | 2018-11-10 06:41 | NUR ---
SHIFT SUMMARY PATIENT VERY PAINFUL THROUGHOUT THE SHIFT. PATIENT MEDICATED FOR PAIN LAST NIGHT PER EMAR. PATIENT REPOSITIONED FOR PAIN RELIEF WELL. HELPED TO PROVIDE CARE AND TO TURN PATIENT. PATIENT APPEARED TO SLEEP WELL FOR SEVERAL HOURS LAST NIGHT. WOUND VAC INTACT AND RUNNING. JORI DRAIN IN PLACE AND DRAINING A SMALL AMOUNT OF RED LIQUID. PATIENT'S OSTOMY DOES NOT APPEAR TO BE DRAINING ANYTHING BUT SMALL AMOUNTS OF RED LIQUID YET BUT DOES APPEAR TO BE PRODUCING GAS THIS MORNING. WILL CONTINUE TO MONITOR PATIENT AND REPORT TO ONCOMING RN.
--- NOTE | 2018-11-10 11:17 | NUR ---
Echocardiogram completed.
--- NOTE | 2018-11-10 11:59 | NUR ---
AM NOTE. ASSUMED CARE OF PT APROX 0700. PT IS A&Ox4 AND 2P ASSIST OUT OF BED TO CHAIR. PT IS POST OP DAY 3 OF COLECTOMY. PT'S OSTOMEY IS DARK PINK AND BEEFY, SMALL AMOUNT OF GAS IS NOTED IN THE BAG AND SMALL AMOUNT OF BROWNISH/RED LIQUID IS NOTED IN THE BAG WELL. PT'S VS STABLE AT THIS TIME, PT HAS NONPITTING EDEMA TO HIS BUE AND TRACE EDEMA TO HIS FEET/ANKELS. PT IS IN NSR IN THE 90'S PER SAMPLE CARRIER. L/S CLEAR T/O AND DIM IN THE BASES. MID LINE INCISION HAS WOUND VAC IN PLACE, GOOD SUCTION IS NOTED AND NO LEAKS. JORI DRAIN IS NOTED TO THE PT'S RLQ, SMALL AMOUNT OF SEROUS FLUID IS NOTED IN THE BULB, BULB IN COMPRESSED. PT IS FEBRILE AT 99.8. PT'S IS AT THE BEDSIDE, EDUCATION PROVIDED AGAIN ON EDEMA, HIS CURRENT ILLNESS, AND WHAT THEY CAN EXPECT. CALL LIGHT IN REACH, WILL CONTINUE TO MONITOR.
--- NOTE | 2018-11-10 12:04 | NUR ---
PT UPDATE... AT 0900, PT BEGAN TO FLIP IN AND OUT OF AFIB/FLUTTER AND NSR. PT WAS NOT SYMPTOMATIC AT THE TIME. PROVIDER WAS CALLED AND ORDERS OBTAINED FOR ECHO AND EKG, AND PO CARDIZEM. ECHO AND EKG WERE OBTAINED WAITING ON RESULTS. PT HAS BEEN IN NSR SINCE 919 WHEN HE CONVERTED BACK. PT AND INFORMED SOON THIS OCCURED. PT AND BOTH EXTENSIVLEY EDUCATED ON AFIB, NEW ORDERS, ECHO,EKG AND CARDIZEM. WILL CONTINUE TO MONITOR.
--- NOTE | 2018-11-10 18:16 | NUR ---
SHIFT SUMMARY. NO NEGATIVE ACUTE CHANGES NOTED. PT'S MCNEIL WAS D/C'D AROUND 1200. PT WAS GIVEN A BEDBATH AND GOT UP INTO THE RECLINER CHAIR. PT'S PAIN AND MOOD WERE GREATLY IMPROVED. PATIENT ALSO WORKED WITH PT AND WALKED INTO THE BATHROOM TO VOID. PT HAS BEEN SITTING UP IN CHAIR SINCE. PT'S VS STABLE, PT HAS NOT HAD HAD ANY AFIB/FLUTTER SINCE 920. PT'S WOUND VAC DRESSING HAS GOOD SEAL AND SUCTION. COLOSTOMY APPLIANCE IS C/D/I, SMALL AMOUNT OF GAS IS NOTED IN THE BAG, PT AND EDUCATED ON COLOSTMEY CARE AND BURPING THE BAG. STOMA IS DARK PINK AND BEEFY. CALL LIGHT IN REACH, BED IS LOCKED AND LOW WILL CONTINUE TO MONITOR UNTIL REPORT IS GIVEN TO ONCOMING RN.
--- NOTE | 2018-11-11 06:10 | NUR ---
SHIFT SUMMARY PT A&O X4. VSS. MONITOR SHOWS ST T/O SHIFT, HR 100-110. HR UP TO 125 W/ AMBULATION TO BATHROOM. PT ABLE TO AMBULATE TO BATHROOM W/ 1 PERSON ASSIST. PT'S SPOUSE AT BEDSIDE PROVIDING CARE FOR PT. WOUND VAC IN PLACE TO ABD MIDLINE. COLOSTOMY TO LLQ W/ GAS OUTPUT AND SMALL AMOUNT OF BROWN LOOSE OUTPUT. PT REPORTS ABD PAIN TO BE DECREASING, RATING PAIN LOW A 2/10 THIS SHIFT. PT IN BED W/ CALL LIGHT IN REACH. WILL CONTINUE TO MONITOR AND PROVIDE CARE UNTIL REPORT OFF TO DAY SHIFT RN.
[2018-11-11 07:07] LABS: Hematocrit 46.1 % (37.0-53.0); Hemoglobin 15.1 g/dL (13.5-17.5); Mean Corpuscular HGB 28.8 pg (26.0-34.0); Mean Corpuscular HGB Conc 32.8 g/dL (31.5-36.5); Mean Corpuscular Volume 88 fL (80-100); Mean Platelet Volume 9.1 fL (9.1-12.4); Platelet Count 246 K/mm3 (150-400); RDW Standard Deviation 51.8 fL (35.1-46.3); Red Blood Cell Count 5.24 M/mm3 (4.30-5.90); White Blood Cell Count 11.33 K/mm3 (4.00-11.30)
[2018-11-11 07:25] LABS: Albumin, Blood 1.7 g/dL (3.4-5.0); Anion Gap 4 mmol/L (6-16); Blood Urea Nitrogen 20 mg/dL (8-24); Bun/Creatinine Ratio 23.4 (12.0-20.0); CO2, Blood 31 mmol/L (21-32); Calcium, Blood 8.1 mg/dL (8.5-10.1); Chloride, Blood 104 mmol/L (98-108); Creatinine, Blood 0.85 mg/dL (0.60-1.20); Glomerular Filtration Rate >60 (60-); Glucose, Blood 96 mg/dL (70-99); Magnesium, Blood 2.1 mg/dL (1.6-2.4); Phosphorus, Blood 2.6 mg/dL (2.5-4.9); Sodium, Blood 139 mmol/L (136-145)
[2018-11-11 07:31] LABS: BAND PERCENT MAN 2 % (0-8); BASOPHILS PERCENT MAN 0 % (0-2); EOSINOPHILS ABSOLUTE MAN 0.22 K/mm3 (0.00-0.68); EOSINOPHILS PERCENT MAN 2 % (0-6); LYMPHOCYTES ABSOLUTE MAN 0.79 K/mm3 (0.84-5.20); LYMPHOCYTES PERCENT MAN 7 % (21-46); METAMYELOCYTE ABSOLUTE MAN 0.22 K/mm3 (0.00-0.00); METAMYELOCYTE PERCENT MAN 2 % (0-0); MONOCYTES ABSOLUTE MAN 1.24 K/mm3 (0.16-1.47); MONOCYTES PERCENT MAN 11 % (4-13); MYELOCYTE ABSOLUTE MAN 0.11 K/mm3 (0.00-0.00); MYELOCYTE PERCENT MAN 1 % (0-0); NEUTROPHILS ABSOLUTE MAN 8.72 K/mm3 (1.96-9.15); SEG NEUTROPHILS PERCENT MAN 75 % (41-73); TOTAL CELLS COUNTED 100
--- NOTE | 2018-11-11 15:17 | NUR ---
SHIFT SUMMARY PT RESTING IN BED AND UP TO CHAIR THROUGHOUT THE DAY. ALERT AND ORIENTED X3. C/O BACK / ABDOMINAL PAIN 1-09/20, MEDICATED WITH PRN PAIN MEDS. LUNG SOUNDS CLEAR, SINUS TACHYCARDIA RATE 100s PER TELEMETRY. C/O NUMBNESS AND TINGLING TO BILATERAL FEET. PT UP TO BATHROOM WITH FWW AND STANDBY ASSIST. PT AMBULATED WITH THERAPY THIS AM AND TOLERATED WELL. FAMILY AT BEDSIDE. WILL CONTINUE TO MONITOR.
--- NOTE | 2018-11-11 16:00 | NUR ---
PT AWAKE IN BED, STATES PAIN IS IMPROVED TO ABD AND BACK WITH SCORE 3/10. PT'S ASSISTING PT TO WHEELCHAIR TO TAKE STROLL AROUND HOSPITAL HALLWAYS. COLOSTOMY W SMALL AMT BROWN SOFT STOOL, STOMA BEEFY RED, WOUND VAC INTACT.
--- NOTE | 2018-11-11 17:01 | NUR ---
PT BACK FROM WHEELCHAIR RIDE W FAMILY. PT MEDICATED FOR PAIN W FENT 50MCG; PT STATES HE FEELS LIKE HIS PAIN IS IMPROVING OVERALL.
[2018-11-12 03:56] LABS: Hematocrit 44.3 % (37.0-53.0); Hemoglobin 14.6 g/dL (13.5-17.5); Mean Corpuscular HGB 28.6 pg (26.0-34.0); Mean Corpuscular Volume 87 fL (80-100); Mean Platelet Volume 9.5 fL (9.1-12.4); Platelet Count 274 K/mm3 (150-400); RDW Coefficient Variation 15.8 % (11.7-14.2); RDW Standard Deviation 49.6 fL (35.1-46.3); Red Blood Cell Count 5.11 M/mm3 (4.30-5.90); White Blood Cell Count 13.11 K/mm3 (4.00-11.30)
[2018-11-12 04:20] LABS: Albumin, Blood 1.8 g/dL (3.4-5.0); Anion Gap 7 mmol/L (6-16); Blood Urea Nitrogen 21 mg/dL (8-24); Bun/Creatinine Ratio 23.8 (12.0-20.0); CO2, Blood 30 mmol/L (21-32); Calcium, Blood 8.2 mg/dL (8.5-10.1); Chloride, Blood 103 mmol/L (98-108); Creatinine, Blood 0.88 mg/dL (0.60-1.20); Glomerular Filtration Rate >60 (60-); Glucose, Blood 106 mg/dL (70-99); Phosphorus, Blood 3.3 mg/dL (2.5-4.9); Potassium, Blood 3.8 mmol/L (3.5-5.5); Sodium, Blood 140 mmol/L (136-145)
[2018-11-12 04:21] LABS: BAND PERCENT MAN 10 % (0-8); BASOPHILS PERCENT MAN 0 % (0-2); EOSINOPHILS PERCENT MAN 0 % (0-6); LYMPHOCYTES ABSOLUTE MAN 0.65 K/mm3 (0.84-5.20); LYMPHOCYTES PERCENT MAN 5 % (21-46); METAMYELOCYTE ABSOLUTE MAN 0.13 K/mm3 (0.00-0.00); METAMYELOCYTE PERCENT MAN 1 % (0-0); MONOCYTES ABSOLUTE MAN 1.96 K/mm3 (0.16-1.47); MONOCYTES PERCENT MAN 15 % (4-13); MYELOCYTE ABSOLUTE MAN 0.52 K/mm3 (0.00-0.00); MYELOCYTE PERCENT MAN 4 % (0-0); NEUTROPHILS ABSOLUTE MAN 9.83 K/mm3 (1.96-9.15); SEG NEUTROPHILS PERCENT MAN 65 % (41-73); TOTAL CELLS COUNTED 100
--- NOTE | 2018-11-12 04:41 | NUR ---
SHIFT SUMMARY PT A&O X4. VSS. MONITOR SHOWS NSR/ST, HR 90-110 T/O SHIFT. WOUND VAC IN PLACE TO ABD MIDLINE. WOUND VAC TO BE CHANGED TODAY. LLQ COLOSTOMY DRAINING SMALL AMOUNTS OF LIQUID/LOOSE LIGHT BROWN STOOL. PT UP TO BATHROOM W/ SPOUSE ASSIST. PT MEDICATED FOR ABD PAIN PER EMAR/PT REQUEST X1 THIS SHIFT. WILL CONTINUE TO MONITOR AND PROVIDE CARE UNTIL REPORT OFF TO DAY SHIFT RN.
--- NOTE | 2018-11-12 07:13 | NUR ---
PT REPORTING BURNING SENSATION W/ URINATION. MEDIUM, FORMED, HARD, BROWN STOOL IN COLOSTOMY BAG THIS AM.
--- NOTE | 2018-11-12 07:29 | NUR ---
AM NOTE. ASSUMED CARE OF PT APROX 0700. PT IS A&Ox4 AND SBA IN THE ROOM. PT IS S/P 5 DAYS POST OP. PT'S WOUND VAC IS C/D/I WITH GOOD SUCTION AND IS SCHEDULED TO BE CHANGED TODAY. PER REPORT FROM NOC RN PT HAD LARGE, HARD, FORMED STOOL IN CLOSTOMY. PT'S VS STABLE AT THIS TIME, PT IS SLIGHTLY FEBRILE AT 99.6. PT IS SINUS TACH IN THE LOW 100'S. PT HAS MINIMAL NONPITTING EDEMA TO HIS BUE AND TRACE TO HIS BLE. L/S CLEAR T/O ON RA. BT PRESENT AND HYPOACTIVE, ABD IS SOFT, AND TENDER TO PALP WITH MID LINE INCISION AND WOUND VAC PRESENT. IS AT THE BEDSIDE. CALL LIGHT IN REACH, BED IS LOCKED AND LOW WILL CONTINUE TO MONITOR.
[2018-11-12 09:28] LABS: Source, Urine Clean Catch
[2018-11-12 09:39] LABS: Bilirubin, Urine Neg (Neg); Blood, Urine 1+ (Neg); Glucose Qualitative, Urine Neg (Neg); Ketones, Urine Neg (Neg); Leukocyte Esterase, Urine Neg (Neg); Nitrite, Urine Neg (Neg); Protein, Urine 1+ (Neg); Urobilinogen, Urine 1+ (Normal)
[2018-11-12 09:49] LABS: Appearance, Urine Clear (Clear); Color, Urine Yellow (P-Yellow)
[2018-11-12 09:51] LABS: Bacteria Not Seen /hpf; Red Blood Cells, Urine 0-2 /hpf (0-2); Squamous Epithelial Cells Not Seen /hpf (Few); White Blood Cells, Urine 0-2 /hpf (0-5)
--- NOTE | 2018-11-12 17:55 | NUR ---
SHIFT SUMMARY. PT'S VS HAVE BEEN STABLE T/O SHIFT EXCEPT THE PT'S TEMP, TMAX HAS BEEN 100.5. WOUND VAC AND COLOSTOMY APPLIANCE WERE CHAGNED TODAY, PT TOLERATED THIS WELL. PT WAS UP AND WALKING WITH PHYSICAL THERAPIST THIS AM. PT HAS BEEN UP AND WALKING TO BATHROOM TO VOID. PT HAD 300 MLS OF SOFT/LOOSE STOOL IN COLOSTOMY. PT AND EDUCATED ON COLOSTOMY CARE, CLEANING THE BAG AND CHANGING THE APPLIANCE. PT C/O OF BURNING DURING URINATION, UA WAS DONE AND PT DOES NOT HAVE UTI. PT WAS TAKEN TO CT SCAN TO R/O ABD ABCESS, CT SCAN WAS CLEAR. CALL LIGHT IN REACH, BED IS LOCKED AND LOW WILL CONTINUE TO MONITOR UNTIL REPORT IS GIVEN TO ONCOMING RN.
--- NOTE | 2018-11-13 02:07 | NUR ---
PT C/O INCREASING ABD PAIN, RATING PAIN 5/10. NEWLY PASSED, FORMED STOOL FOUND IN COLOSTOMY BAG W/ BAG FULL OF STOOL AND GAS. PT REPORTING RELIEF IN ABD PAIN UPON EMPTYING OF COLOSTOMY BAG. PT THEN MEDICATED PER EMAR W/ FURTHER REDUCTION IN PAIN TO A 4/10. WILL CONTINUE TO MONITOR AND PROVIDE CARE.
[2018-11-13 03:47] LABS: Hematocrit 44.7 % (37.0-53.0); Hemoglobin 14.8 g/dL (13.5-17.5); Mean Corpuscular HGB 28.7 pg (26.0-34.0); Mean Corpuscular HGB Conc 33.1 g/dL (31.5-36.5); Mean Corpuscular Volume 87 fL (80-100); Mean Platelet Volume 9.6 fL (9.1-12.4); Platelet Count 295 K/mm3 (150-400); RDW Coefficient Variation 15.9 % (11.7-14.2); Red Blood Cell Count 5.16 M/mm3 (4.30-5.90); White Blood Cell Count 16.29 K/mm3 (4.00-11.30)
[2018-11-13 03:48] LABS: BASOPHILS ABSOLUTE AUTO 0.04 K/mm3 (0.00-0.23); BASOPHILS PERCENT AUTO 0 % (0-2); EOSINOPHILS ABSOLUTE AUTO 0.25 K/mm3 (0.00-0.68); EOSINOPHILS PERCENT AUTO 2 % (0-6); IMMATURE GRAN ABSOLUTE AUTO 2.81 K/mm3 (0.00-0.10); IMMATURE GRAN PERCENT AUTO 17 % (0-1); LYMPHOCYTES ABSOLUTE AUTO 1.28 K/mm3 (0.84-5.20); LYMPHOCYTES PERCENT AUTO 8 % (21-46); MONOCYTES ABSOLUTE AUTO 1.07 K/mm3 (0.16-1.47); MONOCYTES PERCENT AUTO 7 % (4-13); NEUTROPHILS ABSOLUTE AUTO 10.84 K/mm3 (1.96-9.15); NEUTROPHILS PERCENT AUTO 67 % (41-73)
[2018-11-13 04:07] LABS: Anion Gap 7 mmol/L (6-16); Blood Urea Nitrogen 18 mg/dL (8-24); Bun/Creatinine Ratio 22.2 (12.0-20.0); CO2, Blood 27 mmol/L (21-32); Chloride, Blood 105 mmol/L (98-108); Creatinine, Blood 0.81 mg/dL (0.60-1.20); Glomerular Filtration Rate >60 (60-); Glucose, Blood 111 mg/dL (70-99); Potassium, Blood 3.9 mmol/L (3.5-5.5); Sodium, Blood 139 mmol/L (136-145)
[2018-11-13 04:19] LABS: BAND PERCENT MAN 10 % (0-8); BASOPHILS PERCENT MAN 0 % (0-2); EOSINOPHILS ABSOLUTE MAN 0.48 K/mm3 (0.00-0.68); EOSINOPHILS PERCENT MAN 3 % (0-6); LYMPHOCYTES ABSOLUTE MAN 0.97 K/mm3 (0.84-5.20); LYMPHOCYTES PERCENT MAN 6 % (21-46); MONOCYTES ABSOLUTE MAN 2.28 K/mm3 (0.16-1.47); MONOCYTES PERCENT MAN 14 % (4-13); NEUTROPHILS ABSOLUTE MAN 11.89 K/mm3 (1.96-9.15); SEG NEUTROPHILS PERCENT MAN 63 % (41-73); TOTAL CELLS COUNTED 100
[2018-11-13 04:20] LABS: METAMYELOCYTE ABSOLUTE MAN 0.16 K/mm3 (0.00-0.00); METAMYELOCYTE PERCENT MAN 1 % (0-0); MYELOCYTE ABSOLUTE MAN 0.48 K/mm3 (0.00-0.00); MYELOCYTE PERCENT MAN 3 % (0-0)
--- NOTE | 2018-11-13 04:42 | NUR ---
SHIFT SUMMARY PT MEDICAL W/ TELE STATUS. A&O X4. VSS. MONITOR SHOWS NSR/ST, HR 80-110. LUNG SOUNDS CLEAR, DIM IN BASES. SPO2 > 92% ON RA. LLQ COLOSTOMY W/ SOFT, FORMED GREEN STOOL THIS SHIFT. WOUND VAC IN PLACE TO ABD MIDLINE. PT C/O ABD PAIN, MEDICATED PER EMAR/PT REQUEST X1 THIS SHIFT. PT CURRENTLY RATING ABD PAIN 04/23. PT SPOUSE AT BEDSIDE T/O SHIFT. WILL CONTINUE TO MONITOR AND PROVIDE CARE UNTIL REPORT OFF TO DAY SHIFT RN.
--- NOTE | 2018-11-13 08:56 | NUR ---
AM NOTE. ASSUMED CARE OF PT APROX 0700, PT IS A&Ox4 AND SBA IN THE ROOM. PT IS S/P COLECTOMY. STOMA IS BEFFY RED, WITH SOFT FORMED STOOL. PT C/O OF PAIN RIGHT BEFORE AND AFTER HE HAS A BM. WOUND VAC WAS CHANGED ON 11/12 AND SHOULD BE CHANGED EVERY 3 DAYS PER SURGICAL PROVIDER. PT'S VS STABLE, PT'S TEM IS 99.6. HRR IN THE 90'S-100'S. PT HAS NONPITTING DEPENDENT EDEMA TO HIS GENTIALS. L/S CLEAR T/O. PT'S BLE EDEMA HAS IMPROVED AND IS NOW GONE. PT'S IS AT THE BEDSIDE. CALL LIGHT IN REACH, BED IS LOCKED AND LOW WILL CONTINUE TO MONITOR.
--- NOTE | 2018-11-13 10:05 | NUR ---
RECIEVED TELEPHONE REPORT FROM MARIO UP. PER REPORT PROVIDES ALL PERCONAL CARE FOR THE PT. PER REPORT PT MEDICATED FOR PAIN AT 0830. PT IS INDEPENDENT. PER REPORT PT WILL C/O EXCRUCIATING PAIN, BUT ONCE OSTOMY CARE IS PROVIDED PAIN SUBSIDES WITHOUT MEDDICATION. EDUCATION PROVIDED BY BIOINFORMATICS PROGRAMMER, WILL CONTINUE TO PROVIDE EDUCATION NEEDED.
--- NOTE | 2018-11-13 18:58 | NUR ---
SHIFT SUMMARY- PT ALERT AND ORIENTED AND INDEPENDENT IN THE ROOM. SPOUSE AT THE BEDSIDE AND IS VERY INVOLVED WITH THE PT CARE NEEDS. PT OSTOMY APPLIANCE WAS CHANGED AFTER PT TRANSFERED HERE FROM PCU, WITH THAT THE WOUND VAC REQUIRED CHANGING WELL. PT APPLIANCE AND THE WOUND VAC ARE CONNECTED, OSTOMY BAG CAN NOT BE REMOVED MUST BE FLUSHED AND EMPTIED. PT TELE DC'D.
--- NOTE | 2018-11-14 04:24 | NUR ---
SHIFT SUMMARY PT HAD INCREASED ABD DISCOMFORT THIS SHIFT. PT RESPONDED WELL TO FENTANYL. PT WAS FLUSH AT BEGINNING OF SHIFT AND WARM. ICE PACKS INCREASED PT COMFORT AND REDUCED FLUSH. PT HAS SLEPT OFF AND ON T/O SHIFT. PT IN ATTANDANCE. PT CURRENTLY AWAKE WATCHING TV COMFORTABLY. CALL LIGHT IN REACH.
[2018-11-14 04:27] LABS: BASOPHILS ABSOLUTE AUTO 0.15 K/mm3 (0.00-0.23); BASOPHILS PERCENT AUTO 1 % (0-2); Hematocrit 43.7 % (37.0-53.0); Hemoglobin 14.2 g/dL (13.5-17.5); LYMPHOCYTES ABSOLUTE AUTO 1.47 K/mm3 (0.84-5.20); LYMPHOCYTES PERCENT AUTO 8 % (21-46); MONOCYTES ABSOLUTE AUTO 1.16 K/mm3 (0.16-1.47); MONOCYTES PERCENT AUTO 6 % (4-13); Mean Corpuscular HGB 28.6 pg (26.0-34.0); Mean Corpuscular HGB Conc 32.5 g/dL (31.5-36.5); Mean Corpuscular Volume 88 fL (80-100); Mean Platelet Volume 9.2 fL (9.1-12.4); Platelet Count 361 K/mm3 (150-400); RDW Coefficient Variation 15.9 % (11.7-14.2); Red Blood Cell Count 4.97 M/mm3 (4.30-5.90); White Blood Cell Count 18.43 K/mm3 (4.00-11.30)
[2018-11-14 04:28] LABS: EOSINOPHILS ABSOLUTE AUTO 0.29 K/mm3 (0.00-0.68); EOSINOPHILS PERCENT AUTO 2 % (0-6); IMMATURE GRAN ABSOLUTE AUTO 2.72 K/mm3 (0.00-0.10); IMMATURE GRAN PERCENT AUTO 15 % (0-1); NEUTROPHILS ABSOLUTE AUTO 12.64 K/mm3 (1.96-9.15); NEUTROPHILS PERCENT AUTO 69 % (41-73)
[2018-11-14 04:46] LABS: BAND PERCENT MAN 6 % (0-8); BASOPHILS PERCENT MAN 0 % (0-2); EOSINOPHILS ABSOLUTE MAN 0.36 K/mm3 (0.00-0.68); EOSINOPHILS PERCENT MAN 2 % (0-6); LYMPHOCYTES ABSOLUTE MAN 1.47 K/mm3 (0.84-5.20); LYMPHOCYTES PERCENT MAN 8 % (21-46); METAMYELOCYTE ABSOLUTE MAN 0.73 K/mm3 (0.00-0.00); METAMYELOCYTE PERCENT MAN 4 % (0-0); MONOCYTES ABSOLUTE MAN 0.36 K/mm3 (0.16-1.47); MONOCYTES PERCENT MAN 2 % (4-13); NEUTROPHILS ABSOLUTE MAN 15.48 K/mm3 (1.96-9.15); SEG NEUTROPHILS PERCENT MAN 78 % (41-73); TOTAL CELLS COUNTED 100
--- NOTE | 2018-11-14 07:17 | NUR ---
ASSUMED CARE OF PT- RECIEVED REPORT FROM NIGHT MARIO BECK. PER REPORT PT WAS MEDICATED TWICE DURING THE NIGHT WITH IV FENTANYL. PT WAS MEDICATED WITH OXY Q6 HOURS YESTERDAY. SPOUSE IS CONCERNED, THE PT HAS BEEN ON A MORPHINE PUMP FOR 7 YEARS FOR CHRONIC BACK PAIN. THE PUMP IS CURRENTLY TURNED OFF; HER CONCERN IS THAT THE PT WILL START TO GO THROUGH DT'S IF STAFF DO NOT KEEP UP ON HIS PAIN MEDICATION. A RESULT SHE OFTEN CALLS FOR PAIN MEDICATION WHEN THE PT APPEARS TO NOT BE IN PAIN (PT SEEMS TO BE A BIT STOIC) AFTER ASKING QUESTIONS IT SEEMS THE PT PAIN IS AT A 3/10 IF HE HOLDS PERFECTLY STILL OTHERWISE IT IS A 5-6/10. PT AND HIS SPOUSE WERE HOPING TO GO HOME TODAY, HOWEVER WBC COUNT HAS GONE UP AGAIN ON MORNING LABS.
--- NOTE | 2018-11-14 12:55 | NUR ---
SHIFT SUMMARY- BEDSIDE REPORT COMPLETED WITH MARIO SWANSON. DR LOPEZ CAME TO SEE THE PT, PLAN IS TO DC THE WOUND VAC NOW, CHANGE TO WET TO DRY DRESSING, DC IV FENTANYL AND PT IS TO RESTART HIS MORPHINE PUMP. OK TO CONTINUE THE 5MG OXY Q6 PRN FOR PAIN. PT SPOUSE IS AT THE BEDSIDE AND IS AWARE OF THIS WELL THE PLAN TO DISCHARGE ON HOME HEALTH EARLY TOMORROW. DR LOPEZ IS AWARE OF THE INCREASING WBC. PLAN IS TO DC TOMORROW ON HOME HEALTH. CALLED GIANA LANG IN DISCHARGE PLANNING SHE IS AWARE OF THIS.
--- NOTE | 2018-11-14 14:13 | NUR ---
ASSUMED CARE OF PT ASSUMED CARE OF PT AT 1230. PT IN STABLE CONDITION. NO CHANGES IN ASSESSMENT AT THIS TIME. WOUND VAC TAKEN OFF. DAMP TO DRY DRESSING PLACED. MEDICATED FOR PAIN. WILL CONTINUE TO MONITOR UNTIL TURNOVER IS COMPLETE.
--- NOTE | 2018-11-14 15:23 | NUR ---
PT PAIN SPOKE WITH DR. SANTIAGO ABOUT PT PAIN. OXY 5 MG INCREASED FREQUENCY FROM Q6 TO Q4. WILL CONTINUE TO MONITOR. DR. SANTIAGO ALSO INFORMED THAT PT IS HAVING INDIGESTION & REQUESTING SOMETHING FOR THAT. DR SANTIAGO STATED HE WILL PLACE AN ORDER.
--- NOTE | 2018-11-14 17:17 | NUR ---
SHIFT SUMMARY PT CONTINUES TO HAVE PROBLEMS WITH PAIN. DR. SANTIAGO NOTIFIED. OXY DOSE INCREASED TO 10MG Q4 PRN. NO OTHER CHANGES IN ASSESSMENT AT THIS TIME. ABD DRESSING INTACT, CLEAN, & DRY. VSS. WILL CONTINUE TO MONITOR UNTIL TURNOVER IS COMPLETE.
--- NOTE | 2018-11-14 17:32 | NUR ---
Spiritual Care inital note; Mr. Jay and his were politely dismissive of prayer and emotional support. Pt reports to be happy he will be going home tomorrow and that he feels "much better than I did." I will remain available.
[2018-11-15 05:02] LABS: EOSINOPHILS ABSOLUTE AUTO 0.25 K/mm3 (0.00-0.68); EOSINOPHILS PERCENT AUTO 1 % (0-6); Hematocrit 50.3 % (37.0-53.0); IMMATURE GRAN ABSOLUTE AUTO 2.36 K/mm3 (0.00-0.10); IMMATURE GRAN PERCENT AUTO 12 % (0-1); LYMPHOCYTES ABSOLUTE AUTO 2.04 K/mm3 (0.84-5.20); LYMPHOCYTES PERCENT AUTO 11 % (21-46); MONOCYTES ABSOLUTE AUTO 1.07 K/mm3 (0.16-1.47); MONOCYTES PERCENT AUTO 6 % (4-13); Mean Corpuscular HGB 28.4 pg (26.0-34.0); Mean Corpuscular HGB Conc 31.8 g/dL (31.5-36.5); Mean Corpuscular Volume 89 fL (80-100); NEUTROPHILS ABSOLUTE AUTO 13.69 K/mm3 (1.96-9.15); NEUTROPHILS PERCENT AUTO 70 % (41-73); Platelet Count 485 K/mm3 (150-400); RDW Coefficient Variation 16.4 % (11.7-14.2); RDW Standard Deviation 52.2 fL (35.1-46.3); Red Blood Cell Count 5.64 M/mm3 (4.30-5.90); White Blood Cell Count 19.46 K/mm3 (4.00-11.30)
[2018-11-15 05:04] LABS: BASOPHILS ABSOLUTE AUTO 0.05 K/mm3 (0.00-0.23); BASOPHILS PERCENT AUTO 0 % (0-2)
--- NOTE | 2018-11-15 05:22 | NUR ---
SHIFT SUMMARY: JHOAN PATELX3 INDEPENDENT IN THE ROOM, AT BEDSIDE ALL NIGHT AND VERY HELPFUL IN HIS NEEDS. SHE WAS VERY CONCERNED AT BEGINNING OF THE SHIFT IN THAT SHE WILL NOT BE ABLE TO TAKE CARE OF THE OSTOMY AND THE WOUND. SHE IS FEARFUL OF MAKING MISTAKE. THEREFORE DID EDUCATION ON OSTOMY CARE, WITH DEMENSTRATION ON HOW TO EMPTY THE BAG AND BURP IT, SHE WILL NEED FUTHER EDUCATION ON CHANGING THE APPLICANCE. DID EDUCATE AND DEMENSTRATE WOUND CARE SLOWLY SO SHE WILL FEEL COMFORTABLE. AFTERWARDS SHE DID FEEL MUCH MORE COMFORTABLE IN THE IDEA THAT SHE CAN DO THE WOUND CARE UNTIL HOME HEALTH CAN GET TO HER HOME, EDUCATED ON HOME HEALTH WELL. WOUND TO ABDOMIN WAS CHANGED AT THIS TIME, WOUND WITH GRANULATION TISSUE DEVELOPING, DRAINAGE IS SMALL AMOUNT AND HEALING WELL, APPLIED WET TO DRY DRESSING. OSTOMY REMAINED INTAKE THROUGHOUT THE SHIFT, LIQUID STOOL WAS NOTED IN THE OSTOMY. PAIN WAS MANAGED WITH CURRENT TREATMENT EVERY 4 HOURS ORDERED PRN. HE DID HAVE A PERIOD WHERE HIS BACK WAS HURTING MORE FROM BEING IN BED THEREFORE DID SOME ICE AND REPOSITIONING WHICH HELPED. PROVIDED MASSAGE THERAPY. HE SLEPT WELL THROUGHOUT THE NIGHT ONCE HE GOT SETTLED. CALL LIGHT REMAINED WITH IN REACH, AND WAS USED APPROPRIATLYL. WILL REPORT TO ONCOMING RN.
[2018-11-15 05:36] LABS: BAND PERCENT MAN 3 % (0-8); BASOPHILS PERCENT MAN 0 % (0-2); EOSINOPHILS ABSOLUTE MAN 0.38 K/mm3 (0.00-0.68); EOSINOPHILS PERCENT MAN 2 % (0-6); LYMPHOCYTES ABSOLUTE MAN 2.91 K/mm3 (0.84-5.20); LYMPHOCYTES PERCENT MAN 15 % (21-46); METAMYELOCYTE ABSOLUTE MAN 0.77 K/mm3 (0.00-0.00); METAMYELOCYTE PERCENT MAN 4 % (0-0); MONOCYTES ABSOLUTE MAN 0.97 K/mm3 (0.16-1.47); MONOCYTES PERCENT MAN 5 % (4-13); MYELOCYTE ABSOLUTE MAN 0.38 K/mm3 (0.00-0.00); MYELOCYTE PERCENT MAN 2 % (0-0); NEUTROPHILS ABSOLUTE MAN 14.01 K/mm3 (1.96-9.15); SEG NEUTROPHILS PERCENT MAN 69 % (41-73); TOTAL CELLS COUNTED 100
[2018-11-15] MEDS ORDERED: OXYC10TA19 PO (10:28)
[2018-11-15] MEDS ORDERED: DILT120ERA PO (10:29)
[2018-11-15] MEDS ORDERED: Maglox Liquid360 ML PO (10:30)
--- NOTE | 2018-11-15 11:05 | NUR ---
DISCHARGE NOTE PT DISCHARGED VIA W/C POV WITH SPOUSE TO HOME WITH HOME HEALTH. COLOSTOMY CHANGED AND WET TO DRY DRESSING COMPLETED PRIOR TO DC. PT AND SPOUSE VERBALIZED UNDERSTANDING OF ALL DISCHARGE INSTRUCTIONS INCLUDING FOLLOW UP APPTS AND NEW MEDICATIONS. PT TO SEE DR. KU THIS TUESDAY AT HIS OFFICE. ALL BELONGINGS AND VALUABLES SENT HOME WITH PATIENT.
== END 2018-11-15 11:39 | disposition home health service (06) | DRG 853 ==
LOC: ER 07:42 → ICUE 11:20 → MEDS 11:20 → PCU 11:20 → MEDS 12:30 → PCU 20:03 → ICUE 11-07 11:59 → SURS 11-08 14:19 → PCU 11-09 01:35 → MEDS 11-13 10:43
PROVIDERS: Emergency Medicine; Internal Medicine; Internal Medicine Critical Care Medicine; Internal Medicine Pulmonary Disease; Surgery; ADMIT Internal Medicine
PROC: 0D1N0Z4 Bypass Sigmoid Colon to Cutaneous, Open Approach (ICD-10-PCS; 2018-11-07)
PROC: 5A1955Z Respiratory Ventilation, Greater than 96 Consecutive Hours (ICD-10-PCS; 2018-11-07)
PROC: 0BH17EZ Insertion of Endotracheal Airway into Trachea, Via Natural or Artificial Opening (ICD-10-PCS; 2018-11-07)
PROC: 0DTN0ZZ Resection of Sigmoid Colon, Open Approach (ICD-10-PCS; principal; 2018-11-07 09:45)
DX: A41.9 Sepsis, unspecified organism (principal); J96.01 Acute respiratory failure with hypoxia; K65.9 Peritonitis, unspecified; J18.1 Lobar pneumonia, unspecified organism; K63.3 Ulcer of intestine; K57.20 Diverticulitis of large intestine with perforation and abscess without bleeding; E87.1 Hypo-osmolality and hyponatremia; R65.20 Severe sepsis without septic shock; R00.0 Tachycardia, unspecified; I10 Essential (primary) hypertension; E83.51 Hypocalcemia; R60.9 Edema, unspecified; K21.9 Gastro-esophageal reflux disease without esophagitis
CPT/HCPCS: 31720; 36415; 71045; 71046; 74176; 74177; 80048; 80053; 80069; 81001; 82330; 82803; 83605; 83690; 83735; 83880; 84100; 84145; 84484; 85025; 85610; 85730; 86850; 86900; 86901; 87040; 87070; 87205; 88307; 93005; 93010; 93306; 94002; 94003; 94640; 94667; 94760; 94762; 96365; 96367; 96375; 97110; 97116; 97163; 97530; 99285-25; A9270; C9113; J0610; J0744; J0780; J1100; J1170; J1650; J1885; J1940; J1956; J2250; J2370; J2405; J2543; J2704; J3010; J3475; J7030; J7050; J7060; J7120; Q9967

== ENCOUNTER 2019-01-24 00:18 | Day surgery (SDC) | payer MEDICARE, OTHER ==
[~2019-01-24 00:18] MED LIST changes: +DILT120ERA PO; +Depo-Testos200 MG/ML IM; +MORPHINE 1100 MG/101; +Maglox Liquid360 ML PO; +OXYC10TA19 PO; +Primidone50 MG PO; +Prozac40 MG PO; +Robaxin750 MG PO; +TRAZ50 PO; +Vitamin D2000 UNIT PO
== END 2019-01-24 22:53 | disposition home or self-care (01) ==
LOC: WOUND 00:18
DX: S31.100A Unspecified open wound of abdominal wall, right upper quadrant without penetration into peritoneal cavity, initial encounter (principal); Z87.891 Personal history of nicotine dependence; Z98.890 Other specified postprocedural states
CPT/HCPCS: G0463

== ENCOUNTER 2019-01-30 00:20 | Day surgery (SDC) | payer MEDICARE, OTHER | END 2019-01-30 22:40 | disposition home or self-care (01) | LOC: WOUND 00:20 | DX: S31.100A Unspecified open wound of abdominal wall, right upper quadrant without penetration into peritoneal cavity, initial encounter (principal); Z98.890 Other specified postprocedural states ==

== ENCOUNTER 2019-02-02 12:40 | Day surgery (SDC) | payer MEDICARE, OTHER | END 2019-02-03 23:27 | disposition home or self-care (01) | LOC: WOUND 12:40 | DX: S31.100D Unspecified open wound of abdominal wall, right upper quadrant without penetration into peritoneal cavity, subsequent encounter (principal); Z87.891 Personal history of nicotine dependence; Z98.890 Other specified postprocedural states | CPT/HCPCS: G0463 ==

== ENCOUNTER 2019-02-06 10:46 | Day surgery (SDC) | payer MEDICARE, OTHER | END 2019-02-06 23:00 | disposition home or self-care (01) | LOC: WOUND 10:46 | DX: S31.100D Unspecified open wound of abdominal wall, right upper quadrant without penetration into peritoneal cavity, subsequent encounter (principal); Z98.890 Other specified postprocedural states ==

== ENCOUNTER 2019-02-13 10:51 | Day surgery (SDC) | payer MEDICARE, OTHER | END 2019-02-13 22:58 | disposition home or self-care (01) | LOC: WOUND 10:51 | DX: T81.89XA Other complications of procedures, not elsewhere classified, initial encounter (principal); I10 Essential (primary) hypertension; G62.9 Polyneuropathy, unspecified; G25.0 Essential tremor; E55.9 Vitamin D deficiency, unspecified; Z79.899 Other long term (current) drug therapy; Y83.8 Other surgical procedures as the cause of abnormal reaction of the patient, or of later complication, without mention of misadventure at the time of the procedure ==

== ENCOUNTER 2019-02-20 10:46 | Day surgery (SDC) | payer MEDICARE, OTHER | END 2019-02-20 22:56 | disposition home or self-care (01) | LOC: WOUND 10:46 | DX: S31.100D Unspecified open wound of abdominal wall, right upper quadrant without penetration into peritoneal cavity, subsequent encounter (principal) ==

== ENCOUNTER 2019-02-27 10:54 | Day surgery (SDC) | payer MEDICARE, OTHER | END 2019-02-27 23:30 | disposition home or self-care (01) | LOC: WOUND 10:54 | DX: T81.89XD Other complications of procedures, not elsewhere classified, subsequent encounter (principal); I10 Essential (primary) hypertension; G62.9 Polyneuropathy, unspecified; G25.0 Essential tremor; E55.9 Vitamin D deficiency, unspecified; Z79.899 Other long term (current) drug therapy; Y83.8 Other surgical procedures as the cause of abnormal reaction of the patient, or of later complication, without mention of misadventure at the time of the procedure | CPT/HCPCS: G0463 ==

== ENCOUNTER 2019-05-17 15:50 | Inpatient (IN) | payer MEDICARE, OTHER ==
[~2019-05-17] VITALS: Ht 175.3 cm; Wt 76.7 kg
[~2019-05-17 15:50] MED LIST changes: +ATOR20 PO
--- NOTE | 2019-05-22 08:13 | NUR ---
Ambulatory in Day Surgery History, Chart, Medications and Allergies reviewed before start of procedure.Lungs clear T/O to Auscultation. Patient confirms NPO status and agrees with scheduled surgery. Patient reports completing Chlorhexadine shower X2 prior to admission to hospital.Surgical site prepped with 2% Chlorhexidine cloth wipe.
--- NOTE | 2019-05-22 08:16 | NUR ---
PT REPORTS H/A 2/10. HE STATES THAT A 2/10 IS A TOLERABLE LEVEL FOR HIM.
--- NOTE | 2019-05-22 08:59 | NUR ---
TYPE AND SCREEN SENT TO LAB PER ORDER.
--- NOTE | 2019-05-22 14:45 | NUR ---
pt report given to chanel peralta rn. pt currently has received a total of 250 mcgs iv fentanyl and zofran for c/o of pain and nausea. pt stated 8/10 of pain in abdomen. no wretching or grimacing noted. HR REMAINED ELEVATED, SPOKE TO DR CORDERO REGARDING PT ASSESSMENT. NEW ORDERS RECEIVED.
--- NOTE | 2019-05-22 15:10 | NUR ---
1450-ASSUMED CARE OF PATIENT
--- NOTE | 2019-05-22 17:00 | NUR ---
DR KU CALLED AND ORDERED EKG. COMPLETED BY CHARGE LESLEY MARTIN. TELEPHONE CALL WITH DR KU RELAYING RESULTS: NEW ONSET AFIB. NEW ORDERS RECEIVED: LABS CBC,CMP, TROPONIN AND CONSULT HOSPITALIST. TELEPHONE CALL TO ER, HOSP NEXT UP IS DR HODGES. CALLED AND SPOKE WITH DR HODGES RELAYING ABOVE; REP SHE WILL COME SEE PT.
--- NOTE | 2019-05-22 17:58 | NUR ---
TELE MONITOR APPLIED: PCU DRAPERY MAKER STELLA REP SINUS TACH 130-135.
[2019-05-22 18:05] LABS: BASOPHILS ABSOLUTE AUTO 0.02 K/mm3 (0.00-0.23); BASOPHILS PERCENT AUTO 0 % (0-2); EOSINOPHILS PERCENT AUTO 0 % (0-6); Hematocrit 52.2 % (37.0-53.0); Hemoglobin 16.9 g/dL (13.5-17.5); IMMATURE GRAN ABSOLUTE AUTO 0.04 K/mm3 (0.00-0.10); IMMATURE GRAN PERCENT AUTO 0 % (0-1); LYMPHOCYTES ABSOLUTE AUTO 0.75 K/mm3 (0.84-5.20); LYMPHOCYTES PERCENT AUTO 6 % (21-46); MONOCYTES ABSOLUTE AUTO 0.98 K/mm3 (0.16-1.47); MONOCYTES PERCENT AUTO 8 % (4-13); Mean Corpuscular HGB Conc 32.4 g/dL (31.5-36.5); Mean Corpuscular Volume 93 fL (80-100); Mean Platelet Volume 8.5 fL (9.1-12.4); NEUTROPHILS ABSOLUTE AUTO 10.91 K/mm3 (1.96-9.15); NEUTROPHILS PERCENT AUTO 86 % (41-73); Platelet Count 223 K/mm3 (150-400); RDW Standard Deviation 48.1 fL (35.1-46.3); Red Blood Cell Count 5.63 M/mm3 (4.30-5.90)
[2019-05-22 18:23] LABS: Alanine Aminotransfer (ALT/SGP 57 U/L (12-78); Albumin/Globulin Ratio 0.9 (0.8-1.8); Alk Phos 58 U/L (50-136); Anion Gap 6 mmol/L (6-16); Aspartate Aminotrans (AST/SGOT 37 U/L (12-37); Bilirubin, Total 1.5 mg/dL (0.1-1.0); Blood Urea Nitrogen 10 mg/dL (8-24); Bun/Creatinine Ratio 11.7 (12.0-20.0); CO2, Blood 25 mmol/L (21-32); Calcium, Blood 7.8 mg/dL (8.5-10.1); Chloride, Blood 104 mmol/L (98-108); Creatinine, Blood 0.86 mg/dL (0.60-1.20); Globulin, Blood 3.3 g/dL (2.2-4.0); Glomerular Filtration Rate >60 (60-); Glucose, Blood 105 mg/dL (70-99); Potassium, Blood 4.2 mmol/L (3.5-5.5); Sodium, Blood 135 mmol/L (136-145); Total Protein, Blood 6.3 g/dL (6.4-8.2); Troponin I 0.023 ng/mL (0.000-0.040)
--- NOTE | 2019-05-22 18:49 | NUR ---
SHIFT SUMMARY PT A&OX4, TELE ST @ 130-135. S/P COLOSTOMY REVERSAL, LIZZ DRY/INTACT, GAUZE DRESSING DRY/INTACT. HOSPITALIST IN TO SEE PT. 500 MLS/HR BOLUS INFUSING. PAIN MANAGED PER EMAR. [place] PO, DENIES N&V. AT BEDSIDE. WILL REPORT TO MONA MARTIN.
--- NOTE | 2019-05-23 04:36 | NUR ---
SHIFT SUMMARY PT IS A/O X4. TOLERATING CLEAR LIQUID DIET. MCNEIL IN PLACE, OFF FLOOR, STAT LOCK IN PLACE. HAS BEEN AT BEDSIDE. PAIN MANAGED WITH PO PAIN MEDS PER ORDERS. PT HAS BEEN REPOSITIONED MULT TIMES. LIZZ AND GAUZE TO ABD DRY AND INTACT. PT HAS BEEN TACHYCARDIC; IV LOPRESSOR WAS GIVEN PER ORDERS AND HR HAS BEEN MUCH BETTER SINCE. WILL CONT TO MONITOR. TELE IN PLACE. PT HAS BEEN ASSISTED WITH ADL'S PRN.
[2019-05-23 05:46] LABS: BASOPHILS ABSOLUTE AUTO 0.02 K/mm3 (0.00-0.23); BASOPHILS PERCENT AUTO 0 % (0-2); EOSINOPHILS PERCENT AUTO 0 % (0-6); Hematocrit 50.4 % (37.0-53.0); Hemoglobin 16.2 g/dL (13.5-17.5); IMMATURE GRAN ABSOLUTE AUTO 0.04 K/mm3 (0.00-0.10); IMMATURE GRAN PERCENT AUTO 0 % (0-1); LYMPHOCYTES ABSOLUTE AUTO 1.21 K/mm3 (0.84-5.20); LYMPHOCYTES PERCENT AUTO 11 % (21-46); MONOCYTES ABSOLUTE AUTO 1.01 K/mm3 (0.16-1.47); MONOCYTES PERCENT AUTO 9 % (4-13); Mean Corpuscular HGB 29.6 pg (26.0-34.0); Mean Corpuscular HGB Conc 32.1 g/dL (31.5-36.5); Mean Corpuscular Volume 92 fL (80-100); Mean Platelet Volume 8.7 fL (9.1-12.4); NEUTROPHILS ABSOLUTE AUTO 8.73 K/mm3 (1.96-9.15); NEUTROPHILS PERCENT AUTO 79 % (41-73); Platelet Count 211 K/mm3 (150-400); RDW Coefficient Variation 14.2 % (11.7-14.2); RDW Standard Deviation 48.2 fL (35.1-46.3); Red Blood Cell Count 5.48 M/mm3 (4.30-5.90); White Blood Cell Count 11.01 K/mm3 (4.00-11.30)
[2019-05-23 06:05] LABS: Anion Gap 5 mmol/L (6-16); Blood Urea Nitrogen 9 mg/dL (8-24); Bun/Creatinine Ratio 9.6 (12.0-20.0); CO2, Blood 28 mmol/L (21-32); Calcium, Blood 7.8 mg/dL (8.5-10.1); Chloride, Blood 106 mmol/L (98-108); Creatinine, Blood 0.94 mg/dL (0.60-1.20); Glomerular Filtration Rate >60 (60-); Glucose, Blood 108 mg/dL (70-99); Potassium, Blood 4.1 mmol/L (3.5-5.5); Sodium, Blood 139 mmol/L (136-145); Troponin I 0.015 ng/mL (0.000-0.040)
--- NOTE | 2019-05-23 07:58 | NUR ---
pt denies n/v pain 04/23 but has occ int spasm 08/21 asked to have some of his tubes and wires removed took off his biox probe will call tele to have them notify us of inc hr or rhythm change
--- NOTE | 2019-05-23 10:43 | NUR ---
fent fiscal services director started to inc pt use of is/tcdb on ra pt is 94 %
--- NOTE | 2019-05-23 12:15 | NUR ---
pt reporting more gas pain just took his tea from his cl tray for lunch
--- NOTE | 2019-05-23 17:00 | NUR ---
PT OOB TO CHAIR PO NORCO GIVEN EARLIER PT [place] WELL NO DIZZINESS
--- NOTE | 2019-05-24 04:29 | NUR ---
SHIFT SUMMARY POD 2 COLOSTOMY REVISION. AA0X4, VSS. PT HAVING SMALL BMS OF RED JELLY LIKE STOOL. PT REPORTS PAIN AROUND 4-5/10 WITH LAPEL BASTER. PT TRANSFERING WELL TO BSC. TOLERATING CLEAR LIQUIDS. ENCOURAGING FLUID INTAKE. MCNEIL PATENT AND DRAINING. WILL REMOVE CATHETER AND MONITOR FOR SPONTANEOUS VOID. PRN ZOFRAN FOR NAUSEA X1. SIG OTHER AT BEDSIDE DURING NIGHT.
[2019-05-24 04:30] LABS: BASOPHILS ABSOLUTE AUTO 0.03 K/mm3 (0.00-0.23); BASOPHILS PERCENT AUTO 0 % (0-2); EOSINOPHILS ABSOLUTE AUTO 0.01 K/mm3 (0.00-0.68); EOSINOPHILS PERCENT AUTO 0 % (0-6); Hematocrit 49.5 % (37.0-53.0); Hemoglobin 15.7 g/dL (13.5-17.5); IMMATURE GRAN ABSOLUTE AUTO 0.08 K/mm3 (0.00-0.10); IMMATURE GRAN PERCENT AUTO 1 % (0-1); LYMPHOCYTES ABSOLUTE AUTO 1.65 K/mm3 (0.84-5.20); LYMPHOCYTES PERCENT AUTO 12 % (21-46); MONOCYTES ABSOLUTE AUTO 1.28 K/mm3 (0.16-1.47); MONOCYTES PERCENT AUTO 9 % (4-13); Mean Corpuscular HGB 29.9 pg (26.0-34.0); Mean Corpuscular HGB Conc 31.7 g/dL (31.5-36.5); Mean Corpuscular Volume 94 fL (80-100); NEUTROPHILS ABSOLUTE AUTO 10.75 K/mm3 (1.96-9.15); NEUTROPHILS PERCENT AUTO 78 % (41-73); Platelet Count 240 K/mm3 (150-400); RDW Standard Deviation 49.2 fL (35.1-46.3); Red Blood Cell Count 5.25 M/mm3 (4.30-5.90)
--- NOTE | 2019-05-24 15:13 | NUR ---
TELE DC'D AT ABOUT 1505 PER ORDER
--- NOTE | 2019-05-24 18:20 | NUR ---
PT HAS HAD MINIMAL OUTPUT TODAY. DR. PETTIT NOTIFIED AT ABOUT 1745, 250ML BOLUS OF LR ORDERED. IS INFUSING CURRENTLY
--- NOTE | 2019-05-24 18:21 | NUR ---
SUMMARY: PT IS POD2 COLOSTOMY REVISION. NO ACUTE CHANGE TODAY. VSS, A/O. PT EASILY ANXIOUS WITH PAIN. MECHANICAL INSULATOR BUTTON ENCOURAGED. BP AND HR INCREASED WITH MOVEMENT, PT DENIES CHEST PAIN OR SOB WITH MOVEMENT, ONLY PAIN. VITALS TREND DOWN WHEN PT IS AT REST. PT ABLE TO MOVE TO CHAIR AND WALK IN [place], SMALL MOVEMENTS ENCOURAGED ALONG WITH REST BECAUSE OF PT PAIN. SURGICAL SITES WNL. BULKY DRESSING CHANGED BY DR. KU. PT HAS DENIED PASSING GAS, REPORTED PT HAD VERY SMALL BM, THIS RN UNABLE TO SEE. PT CONTINUES TO PASS SOME BLOOD AND MUCUS THROUGH RECTUM. TELE DC'D TODAY. NO ACUTE CONCERNS AT THIS TIME. PT ATTENTIVE AT BEDSIDE. WILL PASS REPORT TO NOC RN.
--- NOTE | 2019-05-25 04:32 | NUR ---
SHIFT SUMMARY POD 3 COLOSTOMY REVISION. BRINE PURIFIER INFUSING DURING SHIFT. TYMPANIC BOWEL SOUNDS PRESENT. PT DENIES PASSING GAS DURING SHIFT. NO STOOLS. PT C/O DIFFICULTY URINATING. ENCOURAGING PO FLUIDS, BLADDER SCAN PER PT REQUEST AT 100CC. PT UP TO BSC WITH 1 ASSIST FWW. FAMILY AT BEDSIDE DURING SHIFT. PT REPORTS PAIN OF 4/10 FOR MOST OF SHIFT.
[2019-05-25 04:59] LABS: BASOPHILS ABSOLUTE AUTO 0.03 K/mm3 (0.00-0.23); BASOPHILS PERCENT AUTO 0 % (0-2); EOSINOPHILS ABSOLUTE AUTO 0.03 K/mm3 (0.00-0.68); EOSINOPHILS PERCENT AUTO 0 % (0-6); Hematocrit 41.2 % (37.0-53.0); Hemoglobin 13.3 g/dL (13.5-17.5); IMMATURE GRAN ABSOLUTE AUTO 0.08 K/mm3 (0.00-0.10); IMMATURE GRAN PERCENT AUTO 1 % (0-1); LYMPHOCYTES ABSOLUTE AUTO 1.61 K/mm3 (0.84-5.20); LYMPHOCYTES PERCENT AUTO 13 % (21-46); MONOCYTES ABSOLUTE AUTO 1.05 K/mm3 (0.16-1.47); MONOCYTES PERCENT AUTO 9 % (4-13); Mean Corpuscular HGB 29.8 pg (26.0-34.0); Mean Corpuscular HGB Conc 32.3 g/dL (31.5-36.5); Mean Corpuscular Volume 92 fL (80-100); Mean Platelet Volume 8.7 fL (9.1-12.4); NEUTROPHILS ABSOLUTE AUTO 9.43 K/mm3 (1.96-9.15); NEUTROPHILS PERCENT AUTO 77 % (41-73); Platelet Count 236 K/mm3 (150-400); RDW Coefficient Variation 14.1 % (11.7-14.2); RDW Standard Deviation 48.3 fL (35.1-46.3); Red Blood Cell Count 4.47 M/mm3 (4.30-5.90); White Blood Cell Count 12.23 K/mm3 (4.00-11.30)
[2019-05-25 05:25] LABS: Albumin, Blood 2.6 g/dL (3.4-5.0); Anion Gap 4 mmol/L (6-16); Blood Urea Nitrogen 11 mg/dL (8-24); Bun/Creatinine Ratio 12.4 (12.0-20.0); CO2, Blood 33 mmol/L (21-32); Calcium, Blood 8.1 mg/dL (8.5-10.1); Chloride, Blood 99 mmol/L (98-108); Creatinine, Blood 0.89 mg/dL (0.60-1.20); Glomerular Filtration Rate >60 (60-); Glucose, Blood 103 mg/dL (70-99); Potassium, Blood 3.7 mmol/L (3.5-5.5); Sodium, Blood 136 mmol/L (136-145)
--- NOTE | 2019-05-25 13:25 | NUR ---
DRESSING CHANGED AT OLD OSTOMY SITE AT THIS TIME. PACKED WITH SMALL AMOUNT WET GAUZE AND COVERED WITH DRY GUAZE AND FOAM TAPE. PT TOLERATED WELL, WILL CTM.
--- NOTE | 2019-05-25 14:25 | NUR ---
RECENTLY RECIEVED REPORT FROM KASHMIR AND AM ASSUMING CARE OF PT AT THIS TIME.
--- NOTE | 2019-05-25 14:59 | NUR ---
DR CARTAGENA HERE RECENTLY TO SEE PT, DISCUSSED PT REPORTED TO BE DISTENDED AND NOT PASSING GAS THIS AM. PT REPORTS PASSING GAS AND STOOL WHICH WAS MAINLY DARK BLOOD AND SEDIMENT. FAMILY UPDATED
--- NOTE | 2019-05-25 17:36 | NUR ---
PT REPORTED HAVING DULL ACHE TO L SIDE OF CHEST THAT WAS OFF AND ON. REPORTS THAT IT HAPPENED LAST TIME HE HAD SURGERY WELL BACK IN OCTOBER AND THAT HE WENT TO A FREELANCE COPYWRITER AFTER HAVING HIS PROCEDURE AND THAT EVERYTHING CHECKED OUT FINE. PT GIVEN PEPSI AND MILK TO HELP WITH INDIGESTION WHICH IS WHAT HE THOUGHT IT FELT LIKE. DR HODGES WAS NOTIFIED. EKG WAS COMPLETED. PT REPORTED THAT PAIN WAS RELIEVED WITH PEPSI AND MILK AND BURPING. WAS NOTIFIED OF EKG AND PT NO LONGER HAVING CP. PT MED ORDERED.
--- NOTE | 2019-05-26 04:48 | NUR ---
SHIFT SUMMARY PT IS A/O X4 AND IND. IN ROOM WITH OCCASIONAL ASSISTANCE FROM , WHO STAYED THE NIGHT WITH PT. PT IS TOLERATING CLEAR LIQUID DIET WELL, VOIDING, PASSING GAS, AND HAD SMALL AMT GI OUTPUT. GI OUTPUT APPEARED TO HAVE SOME STOOL WITH DARK RED BLOOD. ABDOMEN IS DISTENDED, BOWEL TONES PRESENT. PAIN MANAGED WITH PAIN MEDS PER ORDERS. PT HAS BEEN WEANING OFF PULLBOAT ENGINEER USE AND MANAGING PAIN MORE WITH PO PAIN MEDS. ASSISTED WITH ADL'S PRN.
--- NOTE | 2019-05-26 18:03 | NUR ---
SHIFT SUMMARY PT BEEN TOLERATING SMALL AMT'S OF DIET. PT BEEN AMBULATING IN HALLWAY. PT BEEN VOIDING AND PASSING GAS. PT BEEN ASSISTED WITH ADL'S PRN. 'S BEEN TO SEE PT. FAMILY IN/OUT OF ROOM TODAY.
--- NOTE | 2019-05-27 07:37 | NUR ---
SHIFT SUMMARY PT IS A/O X4 AND NEEDS STANDBY ASSIST TO BATHROOM. PT IS VOIDING, PASSING GAS, AND REPORTS BM'S. TOLERATING DIET WELL, NO C/O NAUSEA. ABD IS STILL DISTENDED SOMEWHAT AND BRUISING TO ABD. DRESSINGS CHANGED D/T SATURATION. ASSISTED WITH ADL'S PRN.
--- NOTE | 2019-05-27 10:33 | NUR ---
DR HODGES BEEN TO SEE PT.
--- NOTE | 2019-05-27 11:22 | NUR ---
DR STUBBS BEEN TO SEE PT. REPORTS WILL WRITE D/C ORDERS. PT GIVEN SUPPLIES FOR CHANGING DRESSINGS. DISCUSSING WASHING HANDS BEFORE AND AFTER. PT REPORTS HAVING GLOVES AT HOME. IV OUT WNL.
[2019-05-27] MEDS ORDERED: Norco 5-325 Ta1 EACH PO (11:42)
--- NOTE | 2019-05-27 12:18 | NUR ---
DISCHARGE: PT EATING AND DRINKING, PASSING GAS AND HAVING BM'S. PT VOIDING. PT UP AND AMBULATING WITH STEADY GAIT. FAMILY HERE. PT/FAMILY REPORTS UNDERSTANDING OF DISCHARGE INSTRUCTIONS INCLUDING DRESSING CHANGES. PT SENT WITH SUPPLIES AND SCRIPT. FAMILY PACKED UP PT'S BELONGINGS. SCRIPT WITH PAPERWORK. PT/FAMILY GETTING RIDE FROM FRIEND WHEN THEY GET HERE.
--- NOTE | 2019-05-27 13:02 | NUR ---
PT OUT BY W/C WITH BELONGINGS AND PAPERWORK/SCRIPT. PT HAS NO IV'S IN PLACE.
== END 2019-05-27 13:03 | disposition home or self-care (01) | DRG 345 ==
LOC: SURS 05-22 07:34 → PRE IP 05-22 09:00 → SURS 05-22 15:03
PROVIDERS: Internal Medicine; ADMIT Surgery
PROC: 0WQFXZ2 Repair Abdominal Wall, Stoma, External Approach (ICD-10-PCS; 2019-05-22)
PROC: 0DQ80ZZ Repair Small Intestine, Open Approach (ICD-10-PCS; principal; 2019-05-22 09:00)
DX: Z43.3 Encounter for attention to colostomy (principal); K57.92 Diverticulitis of intestine, part unspecified, without perforation or abscess without bleeding; I97.89 Other postprocedural complications and disorders of the circulatory system, not elsewhere classified; F03.90 Unspecified dementia, unspecified severity, without behavioral disturbance, psychotic disturbance, mood disturbance, and anxiety; Z87.891 Personal history of nicotine dependence
CPT/HCPCS: 36415; 80048; 80053; 80069; 84484; 85025; 93005; 93010; A9270-GY; C9113; J0295; J0330; J1170; J1650; J1885; J1940; J2250; J2405; J2704; J2710; J2765; J3010; J7120

== ENCOUNTER 2022-11-06 09:00 | Emergency (ER) | payer MEDICARE, OTHER ==
[~2022-11-06] VITALS: Ht 175.3 cm; Wt 86.2 kg
[~2022-11-06 09:00] MED LIST changes: +Norco 5-325 Ta1 EACH PO
[2022-11-06 09:45] VITALS: BP 121/77
== END 2022-11-06 09:53 | disposition home or self-care (01) ==
LOC: ER 09:00
DX: U07.1 COVID-19 (principal); F03.90 Unspecified dementia, unspecified severity, without behavioral disturbance, psychotic disturbance, mood disturbance, and anxiety; Z87.891 Personal history of nicotine dependence
CPT/HCPCS: 99284

== ENCOUNTER → 2024-05-15 | Outpatient (CLI) | payer MEDICARE, OTHER ==
[2024-05-15 09:12] LABS: BASOPHILS ABSOLUTE AUTO 0.06 K/mm3 (0.00-0.23); BASOPHILS PERCENT AUTO 1 % (0-2); EOSINOPHILS ABSOLUTE AUTO 0.13 K/mm3 (0.00-0.68); EOSINOPHILS PERCENT AUTO 2 % (0-6); Hemoglobin 18.9 g/dL (13.5-17.5); IMMATURE GRAN ABSOLUTE AUTO 0.05 K/mm3 (0.00-0.10); IMMATURE GRAN PERCENT AUTO 1 % (0-1); LYMPHOCYTES ABSOLUTE AUTO 1.82 K/mm3 (0.84-5.20); LYMPHOCYTES PERCENT AUTO 27 % (21-46); MONOCYTES ABSOLUTE AUTO 0.69 K/mm3 (0.16-1.47); MONOCYTES PERCENT AUTO 10 % (4-13); Mean Corpuscular HGB 28.6 pg (26.0-34.0); Mean Corpuscular HGB Conc 32.6 g/dL (31.5-36.5); Mean Corpuscular Volume 88 fL (80-100); Mean Platelet Volume 8.3 fL (9.1-12.4); NEUTROPHILS ABSOLUTE AUTO 4.03 K/mm3 (1.96-9.15); NEUTROPHILS PERCENT AUTO 60 % (41-73); Platelet Count 211 K/mm3 (150-400); RDW Coefficient Variation 13.8 % (11.7-14.2); RDW Standard Deviation 42.9 fL (35.1-46.3); Red Blood Cell Count 6.61 M/mm3 (4.30-5.90); White Blood Cell Count 6.78 K/mm3 (4.00-11.30)
[2024-05-15 09:24] LABS: Albumin, Blood 3.7 g/dL (3.4-5.0); Albumin/Globulin Ratio 0.9 (0.8-1.8); Bilirubin, Total 0.6 mg/dL (0.1-1.0); Bun/Creatinine Ratio 12.6 (12.0-20.0); Calcium, Blood 9.2 mg/dL (8.5-10.1); Creatinine, Blood 1.19 mg/dL (0.60-1.20); Globulin, Blood 4.1 g/dL (2.2-4.0); Total Protein, Blood 7.8 g/dL (6.4-8.2)
== END ==
LOC: LAB SHORT 09:07 → LAB 09:07
PROVIDERS: Family Medicine
DX: M79.89 Other specified soft tissue disorders (principal); R00.2 Palpitations
CPT/HCPCS: 80053; 84484; 85025; 85379